=== PATIENT | female | born 1970 | race African-American/Black ===

== ENCOUNTER → 2016-06-07 | Outpatient (CLI) | payer OTHER ==
[2014-03-17 22:26] VITALS: BP 176/70
[2016-06-07 09:09] LABS: HEMATOCRIT 37.7 % (36.0-47.0); HEMOGLOBIN 11.7 g/dL (12.0-15.5); RED BLOOD COUNT 4.91 x10^6/uL (3.50-5.40); RED CELL DISTRIBUTION WIDTH 16.3 % (11.5-14.5); WHITE BLOOD COUNT 10.9 x10^3/uL (4.0-11.0)
[2016-06-07 09:41] LABS: ALBUMIN/GLOBULIN RATIO 0.6 (1.0-1.7); CALCIUM 9.2 mg/dL (8.5-10.1); CREATININE 1.1 mg/dL (0.6-1.0); GFR 64.4; TOTAL BILIRUBIN 0.4 mg/dL (0.2-1.0); TOTAL PROTEIN 8.2 g/dL (6.4-8.2)
[2016-06-07 09:45] LABS: CHOLESTEROL/HDL RATIO 5.4
== END | disposition home or self-care (01) ==
LOC: LAB 08:36
PROVIDERS: ATTEND Family Medicine
DX: I10 Essential (primary) hypertension (principal); E11.9 Type 2 diabetes mellitus without complications; F32.9 Major depressive disorder, single episode, unspecified; E78.5 Hyperlipidemia, unspecified
CPT/HCPCS: 36415; 80053; 80061; 83036; 84443; 85027

== ENCOUNTER → 2016-10-31 | Outpatient (CLI) | payer OTHER ==
[2014-03-17 22:26] VITALS: BP 176/70
[2016-10-31 09:43] LABS: CALCIUM 9.2 mg/dL (8.5-10.1); GFR 71.6; POTASSIUM 4.4 mmol/L (3.5-5.1)
[2016-10-31 09:47] LABS: CHOLESTEROL/HDL RATIO 3.5
== END | disposition home or self-care (01) ==
LOC: LAB 08:46
PROVIDERS: ATTEND Family Medicine
DX: I10 Essential (primary) hypertension (principal); E11.9 Type 2 diabetes mellitus without complications; F32.9 Major depressive disorder, single episode, unspecified; E78.5 Hyperlipidemia, unspecified
CPT/HCPCS: 36415; 80048; 80061; 83036; 84443

== ENCOUNTER 2016-12-10 08:38 | Emergency (ER) | payer OTHER ==
[~2016-12-10] VITALS: Ht 162.6 cm; Wt 172.4 kg
[2016-12-10 08:57] VITALS: BP 138/76
[2016-12-10] MEDS ORDERED: DIPHTH,PERTUSS(ACELL),TET TOX 0.5 ML DISP.SYRIN. VAX IM ONE (09:15)
[2016-12-10] MEDS ORDERED: SULF1TAB24 PO (09:17)
--- NOTE | 2016-12-10 09:17 | PHYS DOC ---
Past Medical History Past Medical History: Asthma, Diabetes-Type II, High Cholesterol, Hypertension , Other Additional Past Medical Histor: sarcoidosis Past Surgical History: Tonsillectomy Additional Past Surgical Histo: D&C Alcohol Use: None Drug Use: None Adult General Chief Complaint Chief Complaint: ABSCESS HPI HPI Patient is a 46 year old female who presents with R buttock abscess. It started last week and she was on vacation. It opened up and it drained a significant amount of puslike fluid. It has since somewhat improved but she still has mild pain in that area. She had a fever but this is since resolved. With the fever she had a body aches, nausea and vomiting, also this is resolved. She is unsure of her last tetanus immunization. She's had abscess in the past but not in the same area. Review of Systems Review of Systems Constitutional: Denies fever or chills [] Eyes: Denies change in visual acuity, redness, or eye pain [] HENT: Reports nasal congestion , denies sore throat [] Respiratory: Denies cough or shortness of breath [] Cardiovascular: Denies chest pain GI: Denies abdominal pain, nausea, vomiting, bloody stools or diarrhea [] : Denies dysuria or hematuria [] Musculoskeletal: Denies back pain or joint pain [] Integument: per history of present illness Neurologic: Denies headache, focal weakness or sensory changes [] Current Medications Current Medications Current Medications Medications (Trade) Dose Ordered Sig/Eamon Start Time Stop Time Status Last Admin Dose Admin Diphtheria/ Tetanus/Acell Pertussis (Boostrix) 0.5 ml ONCE ONCE 12/10/16 09:15 12/10/16 09:16 DC Allergies Allergies Allergies Coded Allergies Type Severity Reaction Last Updated Verified No Known Drug Allergies 05/01/13 No Physical Exam Physical Exam Constitutional: Well developed, well nourished, no acute distress, non-toxic appearance, morbid obesity HENT: Normocephalic, atraumatic, bilateral external ears normal, oropharynx moist, no oral exudates, nose normal. [] Eyes: PERRLA, EOMI, conjunctiva normal, no discharge. [] Neck: Normal range of motion, no tenderness, supple, no stridor. [] Cardiovascular:Heart rateregular with regular rhythm, no murmur [] Lungs & Thorax: Bilateral breath sounds clear to auscultation, no wheeze Skin: Warm, dry, R distal medial opening from prior abscess drainage without active drainage, no fluctuance, area of enduration laterall, no rectal involvement Back: No tenderness, no CVA tenderness. [] Extremities: No tenderness, no cyanosis, no clubbing, ROM intact, no edema. [] Neurologic: Alert and oriented X 3, normal motor function, normal sensory function, no focal deficits noted. [] Current Patient Data Vital Signs Vital Signs Date Time Temp Pulse Resp B/P (MAP) Pulse Ox O2 Delivery O2 Flow Rate FiO2 12/10/16 08:57 97.6 108 20 138/76 (96) 99 Room Air 97.6 EKG EKG [] Radiology/Procedures Radiology/Procedures Bedside ultrasound shows no area of fluid collection in the area of the induration and near the area prior drainage Heart rate down to 99[] Course & Med Decision Making Course & Med Decision Making Pertinent Labs and Imaging studies reviewed. (See chart for details) No clear abscess at this time. Offered CT scan versus antibiotics alone with follow-up. Patient agreed with antibiotics and understands strict return precautions. Her tetanus was updated. Referred to Dr. Crowe, prescription for Bactrim given. Dragon Disclaimer Dragon Disclaimer This electronic medical record was generated, in whole or in part, using a voice recognition dictation system. Departure Departure Impression: Primary Impression: Abscess Disposition: 01 HOME, SELF-CARE Condition: STABLE Referrals: MALU HERRING MD (PCP) Patient Instructions: Abscess Scripts Sulfamethoxazole/Trimethoprim (BACTRIM DS TABLET) 1 Each Tablet 1 TAB PO BID, #20 TAB Prov: ANNALISA GUNTER MD 12/10/16 ANNALISA GUNTER MD Dec 10, 2016 09:17
== END 2016-12-10 09:33 | disposition home or self-care (01) ==
LOC: ER 08:38
DX: L02.31 Cutaneous abscess of buttock (principal); E11.9 Type 2 diabetes mellitus without complications; J45.909 Unspecified asthma, uncomplicated; E78.00 Pure hypercholesterolemia, unspecified; I10 Essential (primary) hypertension
CPT/HCPCS: 90471; 90715; 99284-25

== ENCOUNTER 2016-12-16 11:27 | Inpatient (IN) | payer OTHER ==
[~2016-12-16] VITALS: Ht 162.6 cm; Wt 162.4 kg
[~2016-12-16 11:27] MED LIST: SULF1TAB24 PO
[2016-12-16 12:00] VITALS: BP 82/50
[2016-12-16 12:05] VITALS: BP 122/57
[2016-12-16] MEDS ORDERED: LISI1TAB7 PO (13:24)
[2016-12-16] MEDS ORDERED: IPRA3AMP NEB (13:24)
[2016-12-16] MEDS ORDERED: INSU100I17 SQ (13:24)
[2016-12-16] MEDS ORDERED: DAPA10TA PO (13:24)
[2016-12-16] MEDS ORDERED: METF500T4 PO (13:24)
[2016-12-16] MEDS ORDERED: ROSU20TA27 PO (13:24)
[2016-12-16] MEDS ORDERED: INSU100I30 SQ (13:24)
[2016-12-16] MEDS ORDERED: PROAIR HFA8.5 GM INH (13:24)
[2016-12-16] MEDS ORDERED: IV NORMAL SALINE 1000ML BAG 1,000 ML IV SCH (13:27)
[2016-12-16] MEDS ORDERED: MOME13HF IH (13:28)
[2016-12-16] MEDS ORDERED: VANCOMYCIN PER PHARMACY MC PRN (13:30)
[2016-12-16] MEDS ORDERED: ALBUTEROL SULFATE 2.5 MG/3 ML NEBU. NEB PRN (13:45)
[2016-12-16] MEDS ORDERED: ENOXAPARIN 40 MG/0.4 ML SYRINGE. SQ SCH (14:00)
[2016-12-16] MEDS ORDERED: PIPERACILLIN/TAZOBACTAM 3.375 GM in IV NORMAL SALINE 50ML 50 ML IV ONE (14:00)
[2016-12-16 15:00] VITALS: BP 134/82
[2016-12-16] MEDS ORDERED: VANCOMYCIN 2 GM in IV NORMAL SALINE 500ML BAG 500 ML IV ONE (15:00)
[2016-12-16] MEDS ORDERED: ACETAMINOPHEN 325 MG TABLET. PO PRN (15:00)
[2016-12-16] MEDS ORDERED: diphenhydrAMINE 50 MG/ML VIAL IVP ONE (15:00)
[2016-12-16 15:23] LABS: BASO % 0 % (0-3); EOS % 2 % (0-3); HEMATOCRIT 32.1 % (36.0-47.0); HEMOGLOBIN 10.5 g/dL (12.0-15.5); LYMPH # 2.8 x10^3/uL (1.0-4.8); LYMPH % 28 % (24-48); MEAN CORPUSCULAR HEMOGLOBIN 25 pg (25-35); MEAN CORPUSCULAR HGB CONC 33 g/dL (31-37); MEAN CORPUSCULAR VOLUME 75 fL (79-100); MONO % 10 % (0-9); NEUT % 60 % (31-73); PLATELET COUNT 527 x10^3/uL (140-400); RED BLOOD COUNT 4.28 x10^6/uL (3.50-5.40); RED CELL DISTRIBUTION WIDTH 16.3 % (11.5-14.5)
[2016-12-16 15:30] LABS: CALCIUM 9.4 mg/dL (8.5-10.1); CREATININE 2.2 mg/dL (0.6-1.0); GFR 28.8; POTASSIUM 4.8 mmol/L (3.5-5.1)
[2016-12-16] MEDS: IPRATRPIUM/ALBUTEROL 0.5/2.5MG 3 ML NEBU. NEB SCH ×2 (16:09→20:18)
--- NOTE | 2016-12-16 16:27 | PDOC2 ---
CONSULT Date of Consult Date of Consult DATE: 12/16/16 TIME: 16:25 Current Medications Current Medications Current Medications Sodium Chloride 1,000 ml @ 100 mls/hr Q10H IV Last administered on 12/16/16 13:48; Start 12/16/16 at 13:27; Stop 12/16/16 at 23:26 Enoxaparin Sodium (Lovenox 40mg Syringe) 40 mg Q24H SQ Last administered on 15:11; Start 12/16/16 at 14:00 Piperacillin Sod/ Tazobactam Sod 3.375 gm/Sodium Chloride 50 ml @ 100 mls/hr Q6HRS IV ; Start 12/16/16 at 20:00 Vancomycin HCl (Vanco Per Pharmacy) 1 each PRN DAILY PRN MC SEE COMMENTS Last administered on 12/16/16 16:19; Start 12/16/16 at 13:30 Insulin Aspart (NovoLOG) 30 units TIDWMEALS SQ ; Start 12/16/16 at 17:00 Albuterol/ Ipratropium (Duoneb) 3 ml RTQID NEB Last administered on 12/16/16 16:09; Start 12/16/16 at 16:00 Metformin HCl (Glucophage) 500 mg BIDWMEALS PO ; Start 12/16/16 at 17:00 Albuterol Sulfate (Ventolin Neb Soln) 2.5 mg PRN Q6HRS PRN NEB SHORTNESS OF BREATH; Start 12/16/16 at 13:45 Non-Formulary Medication 100 units DAILY SQ ; Start 12/17/16 at 09:00; Status UNV Lisinopril (Prinivil) 20 mg BID PO ; Start 12/16/16 at 21:00 Budesonide (Pulmicort) 0.5 mg RTBID NEB ; Start 12/16/16 at 20:00 Atorvastatin Calcium (Lipitor) 80 mg QHS PO ; Start 12/16/16 at 21:00 Insulin Aspart (NovoLOG) 0-12 UNITS QIDACHS SQ ; Start 12/16/16 at 16:30 Hydrochlorothiazide (Hydrodiuril) 25 mg BID PO ; Start 12/16/16 at 21:00 Vancomycin HCl 2 gm/Sodium Chloride 500 ml @ 250 mls/hr 1X ONCE IV Last administered on 12/16/16 15:12; Start 12/16/16 at 15:00; Stop 12/16/16 at 16:59 Piperacillin Sod/ Tazobactam Sod 3.375 gm/Sodium Chloride 50 ml @ 100 mls/hr 1X ONCE IV Last administered on 12/16/16 14:10; Start 12/16/16 at 14:00; Stop 12/16/16 at 14:59; Status DC Diphenhydramine HCl (Benadryl) 50 mg 1X ONCE IVP Last administered on 15:08; Start 12/16/16 at 15:00; Stop 12/16/16 at 15:01; Status DC Acetaminophen/ Hydrocodone Bitart (Lortab 7.5/325) 1 tab PRN Q6HRS PRN PO PAIN ; Start 12/16/16 at 15:00 Acetaminophen (Tylenol) 650 mg PRN Q6HRS PRN PO MILD PAIN; Start 12/16/16 at 15 :00 Vancomycin HCl 2 gm/Sodium Chloride 500 ml @ 250 mls/hr Q24H IV ; Start at 15:00 Vancomycin HCl 1 each 1X ONCE MC ; Start 12/16/16 at 16:30; Stop 12/16/16 at 16 :31; Status Cancel Vancomycin HCl 1 each 1X ONCE MC ; Start 12/18/16 at 14:30; Stop 12/18/16 at 14 :31 Active Scripts Active Bactrim Ds Tablet (Sulfamethoxazole/Trimethoprim) 1 Each Tablet 1 Tab PO BID Reported Dulera 200 Mcg/5 Mcg Inhaler (Mometasone/Formoterol) 13 Gm Hfa.aer.ad 2 Puff IH BID Proair Hfa Inhaler (Albuterol Sulfate) 8.5 Gm Hfa.aer.ad 1 Puff INH PRN Q6HRS PRN Duoneb 0.5-3(2.5) Mg/3 Ml (Albuterol/Ipratropium) 3 Ml Ampul.neb 3 Ml NEB QID Metformin Hcl 500 Mg Tablet 500 Mg PO BID Lisinopril-Hctz 20-25 Mg Tab (Lisinopril/Hydrochlorothiazide) 1 Each Tablet 1 Tab PO BID Tresiba Flextouch U-100 (Insulin Degludec) 100 Unit/1 Ml Insuln.pen 100 Units SQ DAILY Rosuvastatin Calcium 20 Mg Tablet 20 Mg PO HS Novolog Flexpen (Insulin Aspart) 100 Unit/1 Ml Insuln.pen 30 Units SQ TIDWMEALS Farxiga (Dapagliflozin Propanediol) 10 Mg Tablet 10 Mg PO DAILY Allergies Allergies: Coded Allergies: No Known Drug Allergies (Unverified , 05/01/13) Vitals VITALS Vital Signs Date Time Temp Pulse Resp B/P (MAP) Pulse Ox O2 Delivery O2 Flow Rate FiO2 12/16/16 16:15 98 Room Air 12/16/16 12:05 103 122/57 (78) 12/16/16 12:00 97.4 16 97.4 Labs Labs Laboratory Tests Test 12/16/16 14:40 White Blood Count 10.0 x10^3/uL (4.0-11.0) Red Blood Count 4.28 x10^6/uL (3.50-5.40) Hemoglobin 10.5 g/dL (12.0-15.5) Hematocrit 32.1 % (36.0-47.0) Mean Corpuscular Volume 75 fL (79-100) Mean Corpuscular Hemoglobin 25 pg (25-35) Mean Corpuscular Hemoglobin Concent 33 g/dL (31-37) Red Cell Distribution Width 16.3 % (11.5-14.5) Platelet Count 527 x10^3/uL (140-400) Neutrophils (%) (Auto) 60 % (31-73) Lymphocytes (%) (Auto) 28 % (24-48) Monocytes (%) (Auto) 10 % (0-9) Eosinophils (%) (Auto) 2 % (0-3) Basophils (%) (Auto) 0 % (0-3) Neutrophils # (Auto) 6.0 x10^3uL (1.8-7.7) Lymphocytes # (Auto) 2.8 x10^3/uL (1.0-4.8) Monocytes # (Auto) 1.0 x10^3/uL (0.0-1.1) Eosinophils # (Auto) 0.2 x10^3/uL (0.0-0.7) Basophils # (Auto) 0.0 x10^3/uL (0.0-0.2) Sodium Level 134 mmol/L (136-145) Potassium Level 4.8 mmol/L (3.5-5.1) Chloride Level 100 mmol/L (98-107) Carbon Dioxide Level 21 mmol/L (21-32) Anion Gap 13 (6-14) Blood Urea Nitrogen 36 mg/dL (7-20) Creatinine 2.2 mg/dL (0.6-1.0) Estimated GFR (Cockcroft-Gault) 28.8 Glucose Level 227 mg/dL (70-99) Calcium Level 9.4 mg/dL (8.5-10.1) Laboratory Tests Test 12/16/16 14:40 White Blood Count 10.0 x10^3/uL (4.0-11.0) Red Blood Count 4.28 x10^6/uL (3.50-5.40) Hemoglobin 10.5 g/dL (12.0-15.5) Hematocrit 32.1 % (36.0-47.0) Mean Corpuscular Volume 75 fL (79-100) Mean Corpuscular Hemoglobin 25 pg (25-35) Mean Corpuscular Hemoglobin Concent 33 g/dL (31-37) Red Cell Distribution Width 16.3 % (11.5-14.5) Platelet Count 527 x10^3/uL (140-400) Neutrophils (%) (Auto) 60 % (31-73) Lymphocytes (%) (Auto) 28 % (24-48) Monocytes (%) (Auto) 10 % (0-9) Eosinophils (%) (Auto) 2 % (0-3) Basophils (%) (Auto) 0 % (0-3) Neutrophils # (Auto) 6.0 x10^3uL (1.8-7.7) Lymphocytes # (Auto) 2.8 x10^3/uL (1.0-4.8) Monocytes # (Auto) 1.0 x10^3/uL (0.0-1.1) Eosinophils # (Auto) 0.2 x10^3/uL (0.0-0.7) Basophils # (Auto) 0.0 x10^3/uL (0.0-0.2) Sodium Level 134 mmol/L (136-145) Potassium Level 4.8 mmol/L (3.5-5.1) Chloride Level 100 mmol/L (98-107) Carbon Dioxide Level 21 mmol/L (21-32) Anion Gap 13 (6-14) Blood Urea Nitrogen 36 mg/dL (7-20) Creatinine 2.2 mg/dL (0.6-1.0) Estimated GFR (Cockcroft-Gault) 28.8 Glucose Level 227 mg/dL (70-99) Calcium Level 9.4 mg/dL (8.5-10.1) Assessment/Plan Assessment/Plan FNTBD will check soft tissue US in the AM to see if need for further drainage d/w Kendra HOLLOWAYO after clear liquids in the AM Thanks for consult CONSUELO ROUSE MD Dec 16, 2016 16:27
[2016-12-16] MEDS: HYDROcodone/APAP 7.5/325MG 1 TAB TABLET PO PRN ×2 (16:33→22:39)
[2016-12-16] MEDS ORDERED: INFLUENZA VAX SCREEN BY RX. MC PRN (17:00)
[2016-12-16] MEDS ORDERED: PNEUMOCOCCAL VAX SCREEN BY RX. MC PRN (17:00)
--- NOTE | 2016-12-16 17:19 | HP ---
ADMIT DATE: 12/16/2016 CHIEF COMPLAINT: Draining abscess. HISTORY OF PRESENT ILLNESS AND HOSPITAL COURSE: This patient is a 46-year-old female who approximately 6 days prior to visit in the office went to the Emergency Room with perirectal pain and drainage. She was found to have a perirectal abscess which had spontaneously drained and was given Bactrim DS 1 p.o. b.i.d. and cleaning instructions. She came in for followup stating that she was somewhat better, but still felt ill having episodes of nausea and vomiting, feeling fatigued and dizzy. During office evaluation, she was mildly hypotensive compared to her ongoing hypertension with a blood pressure of 109/68. She had a continuing draining perirectal abscess with copious purulent drainage and areas of cellulitis superior to the draining abscess with ongoing firmness. Due to her multiple risk factors of morbid obesity and type 2 diabetes and suspicions of sepsis, she was admitted with failed p.o. antibiotic therapy suspected. PAST MEDICAL HISTORY: Significant for morbid obesity with BMI of 61.44; type 2 diabetes, out of control with last A1c 6 months ago of 11.5; hypertension; high cholesterol; moderate and persistent asthma; obstructive sleep apnea; generalized anxiety and depression; sarcoidosis. MEDICATIONS ON ADMISSION: Lisinopril/HCTZ 20/25 one p.o. b.i.d., metformin 500 one p.o. b.i.d., Lasix 40 mg 1 daily, potassium 20 mEq 1 daily, Neurontin 300 mg at bedtime, Prozac 20 mg q. day, Dulera inhaler 5/200 two puffs b.i.d., DuoNeb nebulizer treatments q. 6 hours, ProAir metered dose inhaler 2 puffs p.r.n., Crestor 20 mg daily, Tresiba 100 units subcutaneously daily, NovoLog FlexPen 30 units subcutaneous with meals, Farxiga 10 mg daily. FAMILY HISTORY: She has a mother who is alive with significant vascular disease status post coronary artery bypass graft, type 2 diabetes, coronary artery disease and hypertension. She has a father who is with brain aneurysm and prostate cancer. 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 She has not smoked. She does not use alcohol. She lives with a roommate. DRUG ALLERGIES: The patient denies. PREVIOUS SURGERIES: D and C, tonsil and adenoidectomy and skin cyst removal. REVIEW OF SYSTEMS: The patient has had a draining, painful abscess for 6 days. She has had ongoing nausea, vomiting and dizziness over the last week. She has not taken her temperature but has felt chills. Her chronic medical issues had been stable to this point except for chronically abnormal and out of control blood sugars. PHYSICAL EXAMINATION: GENERAL: This is a morbidly obese, female in mild distress. She is alert and oriented x 3. HEENT: Benign. NECK: Supple. CARDIAC: Regular rate and rhythm. LUNGS: Clear. ABDOMEN: Soft, nontender. EXTREMITIES: 2+ nonpitting edema and 2+ pulses. SKIN: Revealed a large perirectal abscess with induration superiorly 6 inches x 3 inches in diameter with copious purulent drainage. Culture was done in the office. ASSESSMENT: 1. Suspected sepsis. 2. Perirectal abscess. 3. Acute on chronic renal failure. 4. Type 2 diabetes, out of control. 5. Hypertension. 6. High cholesterol. 7. Moderate persistent asthma. 8. Morbid obesity. 9. Obstructive sleep apnea. 10. Anxiety, depression. PLAN: To proceed with IV antibiotics in the form of vanco and and Zosyn. Consult Infectious Disease as well as Surgery for further evaluation and treatment and debridement if necessary. We will proceed with chronic home medications, discontinuing Farxiga for risk of lactic acidosis and continue to monitor blood sugars throughout hospital stay. MALU HERRING MD DR: NORIS/alysa JOB#: [id number] / [id number]
[2016-12-16] MEDS: metFORMIN 500 MG TABLET PO SCH (17:37)
[2016-12-16] MEDS: INSULIN ASPART 300 UNITS/3 ML INSULN.PEN SQ SCH ×3 (17:42→22:04)
[2016-12-16] MEDS ORDERED: PNEUMOC CONJ VACC 23-VALENT 0.5 ML VIAL. VAX IM ONE (18:00)
[2016-12-16] MEDS ORDERED: FLU VACC QS2017-18 (36MOS+)/PF 0.5 ML SYRINGE. VAX IM ONE (18:00)
[2016-12-16 19:57] VITALS: BP 94/48
[2016-12-16] MEDS ORDERED: PIPERACILLIN/TAZOBACTAM 3.375 GM in IV NORMAL SALINE 50ML 50 ML IV SCH (20:00)
[2016-12-16] MEDS ORDERED: diphenhydrAMINE HCL 25 MG CAPSULE PO PRN (20:15)
[2016-12-16] MEDS: BUDESONIDE 0.5 MG/2 ML NEBU. NEB SCH (20:18)
[2016-12-16] MEDS: ATORVASTATIN CALCIUM 40 MG TABLET. PO SCH (20:30)
[2016-12-16] MEDS: hydroCHLOROthiazide 25 MG TABLET PO SCH ×2 (21:00→22:34)
[2016-12-16] MEDS: MEROPENEM 500 MG in IV NORMAL SALINE 50ML 50 ML IV SCH (21:59)
[2016-12-16] MEDS: LISINOPRIL 20 MG TABLET PO SCH (22:38)
[2016-12-16 23:27] VITALS: BP 112/52
[2016-12-17] VITALS (11 sets, daily range): BP systolic 91–131; BP diastolic 47–71
[2016-12-17] MEDS: MEROPENEM 500 MG in IV NORMAL SALINE 50ML 50 ML IV SCH ×3 (05:37→22:02)
[2016-12-17] MEDS: BUDESONIDE 0.5 MG/2 ML NEBU. NEB SCH ×2 (07:18→20:26)
[2016-12-17] MEDS: IPRATRPIUM/ALBUTEROL 0.5/2.5MG 3 ML NEBU. NEB SCH ×4 (07:18→20:26)
[2016-12-17 07:55] LABS: BASO % 0 % (0-3); EOS % 3 % (0-3); HEMATOCRIT 30.9 % (36.0-47.0); LYMPH # 2.3 x10^3/uL (1.0-4.8); LYMPH % 25 % (24-48); MEAN CORPUSCULAR HEMOGLOBIN 25 pg (25-35); MEAN CORPUSCULAR HGB CONC 32 g/dL (31-37); MEAN CORPUSCULAR VOLUME 76 fL (79-100); MONO % 9 % (0-9); NEUT % 63 % (31-73); PLATELET COUNT 475 x10^3/uL (140-400); RED BLOOD COUNT 4.09 x10^6/uL (3.50-5.40); RED CELL DISTRIBUTION WIDTH 16.4 % (11.5-14.5); WHITE BLOOD COUNT 9.3 x10^3/uL (4.0-11.0)
[2016-12-17] MEDS: INSULIN ASPART 300 UNITS/3 ML INSULN.PEN SQ SCH ×7 (08:00→21:18)
--- NOTE | 2016-12-17 08:13 | RAD ---
Right buttock ultrasound, 12/17/2016: History: Tenderness, draining wound The area of clinical concern in the medial aspect of the right buttock was carefully scanned. There is an irregular mass in the superficial soft tissues. It measures 4.9 x 3.7 x 1.1 cm. Its margins are irregular and spiculated. There is a hypoechoic rim with heterogeneous, predominantly hyperechoic material internally. No internal color flow is seen. This probably represents a complicated fluid collection. IMPRESSION: Irregular, heterogeneous mass in the right buttock probably representing complex fluid such as an abscess or hematoma.
[2016-12-17 08:18] LABS: ALBUMIN 2.6 g/dL (3.4-5.0); ALBUMIN/GLOBULIN RATIO 0.4 (1.0-1.7); CALCIUM 9.4 mg/dL (8.5-10.1); GFR 32.2; POTASSIUM 4.9 mmol/L (3.5-5.1); TOTAL BILIRUBIN 0.3 mg/dL (0.2-1.0); TOTAL PROTEIN 8.8 g/dL (6.4-8.2)
[2016-12-17] MEDS: metFORMIN 500 MG TABLET PO SCH ×2 (08:37→17:00)
[2016-12-17] MEDS: HYDROcodone/APAP 7.5/325MG 1 TAB TABLET PO PRN ×2 (08:38→18:58)
--- NOTE | 2016-12-17 08:57 | PDOC ---
Infectious Disease Note Vital Sign Vital Signs Vital Signs Date Time Temp Pulse Resp B/P (MAP) Pulse Ox O2 Delivery O2 Flow Rate FiO2 12/17/16 08:38 Room Air 12/17/16 07:19 98 12/17/16 07:15 97.7 79 18 99/48 (65) 97.7 Labs Lab Laboratory Tests Test 12/16/16 14:40 12/16/16 17:01 12/16/16 20:45 12/17/16 06:30 White Blood Count 10.0 x10^3/uL (4.0-11.0) 9.3 x10^3/uL (4.0-11.0) Red Blood Count 4.28 x10^6/uL (3.50-5.40) 4.09 x10^6/uL (3.50-5.40) Hemoglobin 10.5 g/dL (12.0-15.5) 10.0 g/dL (12.0-15.5) Hematocrit 32.1 % (36.0-47.0) 30.9 % (36.0-47.0) Mean Corpuscular Volume 75 fL (79-100) 76 fL (79-100) Mean Corpuscular Hemoglobin 25 pg (25-35) 25 pg (25-35) Mean Corpuscular Hemoglobin Concent 33 g/dL (31-37) 32 g/dL (31-37) Red Cell Distribution Width 16.3 % (11.5-14.5) 16.4 % (11.5-14.5) Platelet Count 527 x10^3/uL (140-400) 475 x10^3/uL (140-400) Neutrophils (%) (Auto) 60 % (31-73) 63 % (31-73) Lymphocytes (%) (Auto) 28 % (24-48) 25 % (24-48) Monocytes (%) (Auto) 10 % (0-9) 9 % (0-9) Eosinophils (%) (Auto) 2 % (0-3) 3 % (0-3) Basophils (%) (Auto) 0 % (0-3) 0 % (0-3) Neutrophils # (Auto) 6.0 x10^3uL (1.8-7.7) 5.9 x10^3uL (1.8-7.7) Lymphocytes # (Auto) 2.8 x10^3/uL (1.0-4.8) 2.3 x10^3/uL (1.0-4.8) Monocytes # (Auto) 1.0 x10^3/uL (0.0-1.1) 0.8 x10^3/uL (0.0-1.1) Eosinophils # (Auto) 0.2 x10^3/uL (0.0-0.7) 0.3 x10^3/uL (0.0-0.7) Basophils # (Auto) 0.0 x10^3/uL (0.0-0.2) 0.0 x10^3/uL (0.0-0.2) Sodium Level 134 mmol/L (136-145) 132 mmol/L (136-145) Potassium Level 4.8 mmol/L (3.5-5.1) 4.9 mmol/L (3.5-5.1) Chloride Level 100 mmol/L (98-107) 100 mmol/L (98-107) Carbon Dioxide Level 21 mmol/L (21-32) 21 mmol/L (21-32) Anion Gap 13 (6-14) 11 (6-14) Blood Urea Nitrogen 36 mg/dL (7-20) 40 mg/dL (7-20) Creatinine 2.2 mg/dL (0.6-1.0) 2.0 mg/dL (0.6-1.0) Estimated GFR (Cockcroft-Gault) 28.8 32.2 Glucose Level 227 mg/dL (70-99) 185 mg/dL (70-99) Calcium Level 9.4 mg/dL (8.5-10.1) 9.4 mg/dL (8.5-10.1) Glucose (Fingerstick) 237 mg/dL (70-99) 130 mg/dL (70-99) BUN/Creatinine Ratio 20 (6-20) Total Bilirubin 0.3 mg/dL (0.2-1.0) Aspartate Amino Transf (AST/SGOT) 30 U/L (15-37) Alanine Aminotransferase (ALT/SGPT) 44 U/L (14-59) Alkaline Phosphatase 81 U/L (46-116) Total Protein 8.8 g/dL (6.4-8.2) Albumin 2.6 g/dL (3.4-5.0) Albumin/Globulin Ratio 0.4 (1.0-1.7) Test 12/17/16 07:09 Glucose (Fingerstick) 184 mg/dL (70-99) Objective Assessment Right perirectal abscess ? zosyn reaction - itch but has tolerated augmentin GRICEL - ? Bactrim +/- Dm DM Plan Plan of Care Cont Meropenem. D/c Vanc with GRICEL and begin zyvox F/u cultures from Dr. Tran office Await Surgical eval follow up F/u labs Thank you # [id number] BELEN CHRISTIAN MD Dec 17, 2016 08:57
[2016-12-17] MEDS: INSULIN DEGLUDEC 100 UNIT SQ SCH (09:00)
[2016-12-17] MEDS: LINEZOLID 600 MG TABLET PO SCH ×2 (10:00→21:12)
[2016-12-17] MEDS ORDERED: IV RINGERS,LACTATED 1000ML 1,000 ML IV SCH (10:46)
[2016-12-17] MEDS ORDERED: ONDANSETRON PF 4 MG/2 ML VIAL. IV PRN (11:00)
[2016-12-17] MEDS ORDERED: PROCHLORPERAZINE 10 MG/2 ML VIAL. IV PRN (11:00)
[2016-12-17] MEDS ORDERED: MORPHINE SULFATE 4 MG/ML DISP.SYRIN. IV PRN (11:00)
[2016-12-17] MEDS ORDERED: LIDOCAINE 1% PF 2 ML VIAL. ID PRN (11:00)
[2016-12-17] MEDS: hydroCHLOROthiazide 25 MG TABLET PO SCH ×2 (11:22→21:11)
[2016-12-17] MEDS: LISINOPRIL 20 MG TABLET PO SCH ×2 (11:22→21:12)
--- NOTE | 2016-12-17 11:35 | CONS ---
DATE OF CONSULTATION: REFERRING PHYSICIAN: Dr. Ramses Tran. 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 It was drained and packed. She was seen in her primary care office and found to be somewhat hypotensive. Because of her diabetes risk and potential sepsis, she was admitted for further evaluation and treatment. We were asked to see her to assess the right perirectal abscess. PAST SURGICAL HISTORY: T and A, D and C. PAST MEDICAL HISTORY: Type 2 diabetes, morbid obesity (BMI of 61), hypertension, asthma, obstructive sleep apnea, sarcoidosis, anxiety and depression. ALLERGIES: SHE IS ALLERGIC TO PIPERACILLIN AND TAZOBACTAM. ROUTINE MEDICATIONS: Listed on reconciliation sheet. SOCIAL HISTORY: She is a nonsmoker who does not use alcohol. FAMILY HISTORY: Coronary artery disease, hypertension. REVIEW OF SYSTEMS: GENERAL: Subjective fever and occasional chills, per the patient. HEENT: No recent sore throat or earache. CARDIAC: No palpitations or chest pain. RESPIRATORY: Occasional wheezing secondary to her asthma. No productive cough. GASTROINTESTINAL: Has had nausea and vomiting. NEUROLOGIC: Complains of some dizziness recently without visual changes. PHYSICAL EXAMINATION: GENERAL: Reveals a morbidly obese female who is awake, alert and in no acute distress. VITAL SIGNS: Her temperature is 97.6, heart rate 102, blood pressure 134/82. HEENT: She is normocephalic. EOMs intact. NECK: Supple. LUNGS: Have an occasional wheeze. CARDIAC: Has an increased rate. ABDOMEN: Morbidly obese. PELVIC: Deferred. RECTAL: Visual inspection shows some what appears to be quarter-inch plain Nu Gauze extruding from a small opening on the right buttock near the anal orifice. EXTREMITIES: Show edema. NEUROLOGIC: She is grossly intact. LABORATORY DATA: Admission lab shows a white count of 10,000. Chemistries show elevated blood sugar at 227 and creatinine of 2.2. IMPRESSION: 1. Perirectal abscess, previously drained, possible residual. 2. Morbid obesity. 3. Diabetes. 4. Hypertension. 5. Anxiety/depression. PLAN: We will obtain an ultrasound of the area to further assess possible need for surgical drainage. Await those results. Thank you for asking us to see the patient and participate in her care. We will follow her with you during her hospitalization. CONSUELO ROUSE MD DR: MARITZA/alysa JOB#: [id number] / [id number]
--- NOTE | 2016-12-17 12:03 | CONS ---
DATE OF CONSULTATION: 12/17/2016 LOCATION: Room #416. REQUESTING PHYSICIAN: Dr. Tran. REASON FOR CONSULTATION: Perirectal abscess. HISTORY OF PRESENT ILLNESS: The patient is a pleasant 46-year-old -[place] female who was traveling in [place] a little while ago and she said she felt ill with flu-like illness and traveled back to [place] by car. Shortly after returning, she developed some acute pain in her right buttock area and was seen in the Emergency Room at [facility] on 12/10/2016. She had a bedside ultrasound that did not show any induration or fluid collection and she was discharged on Bactrim. She then followed up on [address] Tran for which she was seen and started to spontaneously drain at home. She had increasing pain in the area for several days. She had some nausea, vomiting, dizzy and has felt dizzy and felt like she has some chills. No dysuria, no frequency, no falls. She states that her blood sugars were over 200 and subsequently she was admitted to [facility] on the . She had a white count of 10, platelets were elevated at 527, but she also was found to have a creatinine of 2.2 with a baseline of 1 on the 31 of October. Currently, she is sitting on the side of bed, states that her rectal area is continuing to drain, but she is feeling better with some drainage. PAST MEDICAL HISTORY: Positive for morbid obesity, type 2 diabetes, hypertension, hypercholesterolemia, asthma, obstructive sleep apnea, anxiety, depression and sarcoidosis. She has had previous influenza REVIEW OF SYSTEMS: Otherwise negative except for mentioned above. ALLERGIES: Questionable now to ZOSYN. She developed itch, but no gross rash or any other symptoms last evening. She has tolerated amoxicillin and Augmentin in the past. 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 No tobacco, no alcohol and lives with roommate. FAMILY HISTORY: Positive for vascular disease, coronary artery disease, diabetes, hypertension, brain aneurysm and prostate cancer. CURRENT MEDICATIONS: Include vancomycin, meropenem, Zosyn has been discontinued. She is on Lipitor, Pulmicort, Benadryl, Lovenox, hydrochlorothiazide, insulin, Prinivil, metformin. PHYSICAL EXAMINATION: VITAL SIGNS: She has been afebrile, temperature 97.7, pulse 79, respiratory rate 18, blood pressure 99/48, satting 98% on room air. CONSTITUTIONAL: She is cooperative. She is in no acute distress. She is sitting on the side of the bed. She is morbidly obese. HEENT: Pupils are equal and reactive. She has normal conjunctivae. Oral cavity, pharynx was clear. NECK: Full. LUNGS: Clear to auscultation. HEART: S1, S2. ABDOMEN: Morbidly obese, soft, nontender, nondistended. No CVA tenderness. EXTREMITIES: Without clubbing, cyanosis or gross edema. She has a right buttock abscess with a small opening approximately a cm size that is draining some purulent material. There is some mild surrounding erythema. SKIN: Otherwise, warm to touch without signs of rash. NEUROLOGIC: She is nonfocal, moves all extremities. PSYCHIATRIC: Affect is appropriate. LABORATORY VALUES: White count 9.3, hemoglobin 10, platelets 475 with a normal differential. Creatinine is 2, glucose 185. Normal liver function study tests. Albumin was 2.6. Ultrasound report, irregular heterogeneous mass, right buttock, probably representing complex fluid such as abscess or hematoma. IMPRESSION: 1. Right perirectal abscess. 2. Questionable Zosyn reaction caused itch, but is tolerating Augmentin. 3. Acute kidney injury secondary to Bactrim, plus or minus for diabetes. 4. Diabetes. RECOMMENDATIONS: For now, we will continue meropenem. We will discontinue the vancomycin with acute kidney injury and begin Zyvox. We will follow up cultures that were obtained in Dr. Tran's office. Await surgical eval and follow up. We will follow up on labs. Dr. Tran, thank you for allowing me to participate in this patient's care. If you have any questions, please do not hesitate to contact me. BELEN CHRISTIAN MD DR: RAVI/alysa JOB#: [id number] / [id number]
[2016-12-17] MEDS ORDERED: fentaNYL PF VIAL 100 MCG/2 ML VIAL ONE (12:20)
[2016-12-17] MEDS ORDERED: PROPOFOL 20 ML IV ONE ×4 (12:21→14:18)
[2016-12-17] MEDS ORDERED: MIDAZOLAM HCL/PF 2 MG/2 ML VIAL. ONE (12:21)
[2016-12-17] MEDS ORDERED: DEXAMETHASONE SOD PHOS 20 MG/5 ML VIAL. ONE (12:22)
[2016-12-17] MEDS ORDERED: ONDANSETRON PF 4 MG/2 ML VIAL. ONE (12:23)
[2016-12-17] MEDS ORDERED: SUCCINYLCHOLINE 200 MG/10 ML VIAL. ONE (12:23)
[2016-12-17] MEDS ORDERED: KETAMINE HCL 500 MG/10 ML VIAL. ONE (12:39)
[2016-12-17] MEDS ORDERED: FAMOTIDINE 20 MG/2 ML VIAL ONE (12:39)
[2016-12-17] MEDS ORDERED: PHENYLEPHRINE in 0.9% NACL PF 1 MG/10 ML DISP.SYRIN. IV ONE (13:59)
[2016-12-17] MEDS ORDERED: DESFLURANE 61 TO 120 MINUTES IH ONE (14:21)
--- NOTE | 2016-12-17 14:44 | PDOC ---
BRIEF OPERATIVE NOTE Date: Dec 17, 2016 Pre-Op Diagnosis right perirectal abscess Post-Op Diagnosis same Procedure Performed excisional debridement of skin, subcutaneous fat and muscle, right perirectal abscess Surgeon [employer] Member Samanta Mills Anesthesia Type: General Blood Loss 200cc IV Fluid 300cc Specimens Obtained cultures Findings necrotic skin, fat and muscle in abscess cavity Complications none OPerative Note Wk # [id number] CONSUELO ROUSE MD Dec 17, 2016 14:44
[2016-12-17] MEDS ORDERED: VANCOMYCIN 2 GM in IV NORMAL SALINE 500ML BAG 500 ML IV SCH (15:00)
[2016-12-17] MEDS ORDERED: INSULIN ASPART 100 UNIT/ML 10ML VIAL. SQ ONE ×2 (15:05→15:15)
[2016-12-17] MEDS: HYDROmorphone 2 MG/ML VIAL IV PRN ×4 (15:05→15:44)
--- NOTE | 2016-12-17 15:25 | OP ---
DATE OF SURGERY: 12/17/2016 PREOPERATIVE DIAGNOSIS: Right perirectal abscess. POSTOPERATIVE DIAGNOSIS: Right perirectal abscess. PROCEDURE: Excisional debridement of skin, subcutaneous fat and muscle, right perirectal abscess. SURGEON: Consuelo Rouse MD. ANESTHESIA: General endotracheal. BLOOD LOSS: 200 mL. INTRAVENOUS FLUID: 300 mL. INDICATIONS: The patient is a morbidly obese 46-year-old female with the right perirectal abscess brought for debridement. OPERATIVE FINDINGS: Necrotic skin, subcutaneous fat and muscle were found in the wound and these were all removed with sharp debridement and a wound VAC was placed. OPERATIVE REPORT: The patient brought to the operating suite, given a general endotracheal anesthetic and the patient placed in the dorsal lithotomy position and the right gluteal area prepped and draped in usual sterile fashion. Probing of the wound revealed extension inferiorly, posteriorly and this was unroofed. With gentle digital exploration, loculations were broken up and necrotic tissue was excised with the LigaSure. Once we were down to healthy tissue, the wound was copiously irrigated with the pulses superintendent refuse disposal. Hemostasis obtained with 3-0 Vicryl stick ties and cautery. At completion of the debridement, the wound measured 11 cm in length, 3 cm in width, and 6 cm in depth. When hemostasis was present and correct sponge count was obtained, wound VAC was applied by the RNs from the wound care center. The patient was taken out of the lithotomy position, awakened from her anesthetic and taken to the recovery room in satisfactory condition. CONSUELO ROUSE MD DR: MARITZA/alysa JOB#: [id number] / [id number]
--- NOTE | 2016-12-17 18:20 | PDOC ---
PROGRESS NOTES Subjective Subjective Patient feeling better after IV fluids and antibiotics. Infectious disease and surgery consultations appreciated. Antibiotics changed due to suspected allergy to piperacillin. Abscess sonography reveals loculated fluid and surgery planned for today. Objective Objective Vital Signs Date Time Temp Pulse Resp B/P (MAP) Pulse Ox O2 Delivery O2 Flow Rate FiO2 12/17/16 17:15 97.3 81 18 124/71 (88) 96 Nasal Cannula 2.0 97.3 Intake and Output 12/18/16 07:00 Intake Total 400 ml Output Total 0 ml Balance 400 ml Intake Oral 50 ml IV Total 350 ml Output Urine Total 0 ml # Voids 2 Physical Exam Abdomen: Normal bowel sounds Heart: Regular rate Extremities: No edema General: Alert Lungs: Clear to auscultation COMMENT Perirectal abscess dressed and continues to drain. Assessment Assessment Sepsis resolving Perirectal abscess Acute renal failure resolving Type 2 diabetes, out of control. Hypertension. High cholesterol. Moderate persistent asthma. Morbid obesity. Obstructive sleep apnea. Anxiety, depression. Plan Plan of Care Continue antibiotic per infectious disease. Continue surgery plan. Monitor control chronic medical issues. Comment Review of Relevant I have reviewed the following items nir (where applicable) has been applied. Labs Laboratory Tests Test 12/16/16 14:40 12/16/16 17:01 12/16/16 20:45 12/17/16 06:30 White Blood Count 10.0 x10^3/uL (4.0-11.0) 9.3 x10^3/uL (4.0-11.0) Red Blood Count 4.28 x10^6/uL (3.50-5.40) 4.09 x10^6/uL (3.50-5.40) Hemoglobin 10.5 g/dL (12.0-15.5) 10.0 g/dL (12.0-15.5) Hematocrit 32.1 % (36.0-47.0) 30.9 % (36.0-47.0) Mean Corpuscular Volume 75 fL (79-100) 76 fL (79-100) Mean Corpuscular Hemoglobin 25 pg (25-35) 25 pg (25-35) Mean Corpuscular Hemoglobin Concent 33 g/dL (31-37) 32 g/dL (31-37) Red Cell Distribution Width 16.3 % (11.5-14.5) 16.4 % (11.5-14.5) Platelet Count 527 x10^3/uL (140-400) 475 x10^3/uL (140-400) Neutrophils (%) (Auto) 60 % (31-73) 63 % (31-73) Lymphocytes (%) (Auto) 28 % (24-48) 25 % (24-48) Monocytes (%) (Auto) 10 % (0-9) 9 % (0-9) Eosinophils (%) (Auto) 2 % (0-3) 3 % (0-3) Basophils (%) (Auto) 0 % (0-3) 0 % (0-3) Neutrophils # (Auto) 6.0 x10^3uL (1.8-7.7) 5.9 x10^3uL (1.8-7.7) Lymphocytes # (Auto) 2.8 x10^3/uL (1.0-4.8) 2.3 x10^3/uL (1.0-4.8) Monocytes # (Auto) 1.0 x10^3/uL (0.0-1.1) 0.8 x10^3/uL (0.0-1.1) Eosinophils # (Auto) 0.2 x10^3/uL (0.0-0.7) 0.3 x10^3/uL (0.0-0.7) Basophils # (Auto) 0.0 x10^3/uL (0.0-0.2) 0.0 x10^3/uL (0.0-0.2) Sodium Level 134 mmol/L (136-145) 132 mmol/L (136-145) Potassium Level 4.8 mmol/L (3.5-5.1) 4.9 mmol/L (3.5-5.1) Chloride Level 100 mmol/L (98-107) 100 mmol/L (98-107) Carbon Dioxide Level 21 mmol/L (21-32) 21 mmol/L (21-32) Anion Gap 13 (6-14) 11 (6-14) Blood Urea Nitrogen 36 mg/dL (7-20) 40 mg/dL (7-20) Creatinine 2.2 mg/dL (0.6-1.0) 2.0 mg/dL (0.6-1.0) Estimated GFR (Cockcroft-Gault) 28.8 32.2 Glucose Level 227 mg/dL (70-99) 185 mg/dL (70-99) Calcium Level 9.4 mg/dL (8.5-10.1) 9.4 mg/dL (8.5-10.1) Glucose (Fingerstick) 237 mg/dL (70-99) 130 mg/dL (70-99) BUN/Creatinine Ratio 20 (6-20) Total Bilirubin 0.3 mg/dL (0.2-1.0) Aspartate Amino Transf (AST/SGOT) 30 U/L (15-37) Alanine Aminotransferase (ALT/SGPT) 44 U/L (14-59) Alkaline Phosphatase 81 U/L (46-116) Total Protein 8.8 g/dL (6.4-8.2) Albumin 2.6 g/dL (3.4-5.0) Albumin/Globulin Ratio 0.4 (1.0-1.7) Test 12/17/16 07:09 12/17/16 11:35 12/17/16 14:52 12/17/16 16:45 Glucose (Fingerstick) 184 mg/dL (70-99) 188 mg/dL (70-99) 208 mg/dL (70-99) 258 mg/dL (70-99) Laboratory Tests Test 12/16/16 20:45 12/17/16 06:30 12/17/16 07:09 12/17/16 11:35 Glucose (Fingerstick) 130 mg/dL (70-99) 184 mg/dL (70-99) 188 mg/dL (70-99) White Blood Count 9.3 x10^3/uL (4.0-11.0) Red Blood Count 4.09 x10^6/uL (3.50-5.40) Hemoglobin 10.0 g/dL (12.0-15.5) Hematocrit 30.9 % (36.0-47.0) Mean Corpuscular Volume 76 fL (79-100) Mean Corpuscular Hemoglobin 25 pg (25-35) Mean Corpuscular Hemoglobin Concent 32 g/dL (31-37) Red Cell Distribution Width 16.4 % (11.5-14.5) Platelet Count 475 x10^3/uL (140-400) Neutrophils (%) (Auto) 63 % (31-73) Lymphocytes (%) (Auto) 25 % (24-48) Monocytes (%) (Auto) 9 % (0-9) Eosinophils (%) (Auto) 3 % (0-3) Basophils (%) (Auto) 0 % (0-3) Neutrophils # (Auto) 5.9 x10^3uL (1.8-7.7) Lymphocytes # (Auto) 2.3 x10^3/uL (1.0-4.8) Monocytes # (Auto) 0.8 x10^3/uL (0.0-1.1) Eosinophils # (Auto) 0.3 x10^3/uL (0.0-0.7) Basophils # (Auto) 0.0 x10^3/uL (0.0-0.2) Sodium Level 132 mmol/L (136-145) Potassium Level 4.9 mmol/L (3.5-5.1) Chloride Level 100 mmol/L (98-107) Carbon Dioxide Level 21 mmol/L (21-32) Anion Gap 11 (6-14) Blood Urea Nitrogen 40 mg/dL (7-20) Creatinine 2.0 mg/dL (0.6-1.0) Estimated GFR (Cockcroft-Gault) 32.2 BUN/Creatinine Ratio 20 (6-20) Glucose Level 185 mg/dL (70-99) Calcium Level 9.4 mg/dL (8.5-10.1) Total Bilirubin 0.3 mg/dL (0.2-1.0) Aspartate Amino Transf (AST/SGOT) 30 U/L (15-37) Alanine Aminotransferase (ALT/SGPT) 44 U/L (14-59) Alkaline Phosphatase 81 U/L (46-116) Total Protein 8.8 g/dL (6.4-8.2) Albumin 2.6 g/dL (3.4-5.0) Albumin/Globulin Ratio 0.4 (1.0-1.7) Test 12/17/16 14:52 12/17/16 16:45 Glucose (Fingerstick) 208 mg/dL (70-99) 258 mg/dL (70-99) Medications Current Medications Sodium Chloride 1,000 ml @ 100 mls/hr Q10H IV Last administered on 12/16/16 13:48; Start 12/16/16 at 13:27; Stop 12/16/16 at 23:26; Status DC Enoxaparin Sodium (Lovenox 40mg Syringe) 40 mg Q24H SQ Last administered on 15:11; Start 12/16/16 at 14:00; Stop 12/17/16 at 13:32; Status DC Piperacillin Sod/ Tazobactam Sod 3.375 gm/Sodium Chloride 50 ml @ 100 mls/hr Q6HRS IV ; Start 12/16/16 at 20:00; Stop 12/16/16 at 20:11; Status DC Vancomycin HCl (Vanco Per Pharmacy) 1 each PRN DAILY PRN MC SEE COMMENTS Last administered on 12/16/16 16:19; Start 12/16/16 at 13:30; Stop 12/17/16 at 08:48 ; Status DC Insulin Aspart (NovoLOG) 30 units TIDWMEALS SQ Last administered on 12/17/16 17:03; Start 12/16/16 at 17:00 Albuterol/ Ipratropium (Duoneb) 3 ml RTQID NEB Last administered on 12/17/16 11:07; Start 12/16/16 at 16:00 Metformin HCl (Glucophage) 500 mg BIDWMEALS PO Last administered on 12/17/16 17:00; Start 12/16/16 at 17:00 Albuterol Sulfate (Ventolin Neb Soln) 2.5 mg PRN Q6HRS PRN NEB SHORTNESS OF BREATH; Start 12/16/16 at 13:45 Non-Formulary Medication 100 units DAILY SQ ; Start 12/17/16 at 09:00; Status UNV Lisinopril (Prinivil) 20 mg BID PO Last administered on 12/16/16 22:38; Start 12/16/16 at 21:00 Budesonide (Pulmicort) 0.5 mg RTBID NEB Last administered on 12/17/16 07:18; Start 12/16/16 at 20:00 Atorvastatin Calcium (Lipitor) 80 mg QHS PO Last administered on 12/16/16 20: 30; Start 12/16/16 at 21:00 Insulin Aspart (NovoLOG) 0-12 UNITS QIDACHS SQ Last administered on 12/17/16 11:49; Start 12/16/16 at 16:30 Hydrochlorothiazide (Hydrodiuril) 25 mg BID PO Last administered on 12/16/16 22:34; Start 12/16/16 at 21:00 Vancomycin HCl 2 gm/Sodium Chloride 500 ml @ 250 mls/hr 1X ONCE IV Last administered on 12/16/16 15:12; Start 12/16/16 at 15:00; Stop 12/16/16 at 16:59 ; Status DC Piperacillin Sod/ Tazobactam Sod 3.375 gm/Sodium Chloride 50 ml @ 100 mls/hr 1X ONCE IV Last administered on 12/16/16 14:10; Start 12/16/16 at 14:00; Stop 12/16/16 at 20:11; Status DC Diphenhydramine HCl (Benadryl) 50 mg 1X ONCE IVP Last administered on 15:08; Start 12/16/16 at 15:00; Stop 12/16/16 at 15:01; Status DC Acetaminophen/ Hydrocodone Bitart (Lortab 7.5/325) 1 tab PRN Q6HRS PRN PO PAIN Last administered on 12/17/16 08:38; Start 12/16/16 at 15:00 Acetaminophen (Tylenol) 650 mg PRN Q6HRS PRN PO MILD PAIN; Start 12/16/16 at 15 :00 Vancomycin HCl 2 gm/Sodium Chloride 500 ml @ 250 mls/hr Q24H IV ; Start at 15:00; Stop 12/17/16 at 15:00; Status DC Vancomycin HCl 1 each 1X ONCE MC ; Start 12/16/16 at 16:30; Stop 12/16/16 at 16 :31; Status Cancel Vancomycin HCl 1 each 1X ONCE MC ; Start 12/18/16 at 14:30; Stop 12/18/16 at 14 :31; Status Cancel Pneumococcal Polyvalent Vaccine (Do NOT chart on this placeholder) 1 each PRN 1X PRN MC SEE COMMENTS; Start 12/16/16 at 17:00; Status UNV Info (Do NOT chart on this placeholder) 1 each PRN 1X PRN MC SEE COMMENTS; Start 12/16/16 at 17:00; Status UNV Influenza Virus Vaccine Quadrival (Fluarix Quad [id number] Syringe) 0.5 ml ONCE ONCE VAX IM ; Start 12/16/16 at 18:00; Stop 12/16/16 at 18:04; Status DC Pneumococcal Polyvalent Vaccine (Pneumovax 23) 0.5 ml ONCE ONCE VAX IM ; Start 12/16/16 at 18:00; Stop 12/16/16 at 18:04; Status DC Diphenhydramine HCl (Benadryl) 25 mg PRN Q6HRS PRN PO ITCHING Last administered on 12/16/16 20:30; Start 12/16/16 at 20:15 Meropenem 500 mg/ Sodium Chloride 50 ml @ 100 mls/hr Q8HRS IV Last administered on 12/17/16 13:27; Start 12/16/16 at 22:00 Linezolid (Zyvox) 600 mg BID PO Last administered on 12/17/16 10:00; Start at 09:00 Ondansetron HCl (Zofran) 4 mg PRN Q6HRS PRN IV NAUSEA/VOMITING; Start 12/17/16 at 11:00; Stop 12/17/16 at 18:00; Status DC Morphine Sulfate 1 mg PRN Q10MIN PRN IV SEVERE PAIN; Start 12/17/16 at 11:00; Stop 12/17/16 at 18:00; Status DC Ringer's Solution 1,000 ml @ 30 mls/hr Q24H IV Last administered on 12/17/16 10:46; Start 12/17/16 at 10:46; Stop 12/17/16 at 22:45 Lidocaine HCl (Xylocaine-Mpf 1% Vial) 2 ml 1X PRN PRN ID IV START; Start at 11:00; Stop 12/17/16 at 11:00; Status DC Hydromorphone HCl (Dilaudid) 0.5 mg PRN Q10MIN PRN IV SEV PAIN, Second choice Last administered on 12/17/16 15:44; Start 12/17/16 at 11:00; Stop 12/17/16 at 18:00; Status DC Prochlorperazine Edisylate (Compazine) 5 mg PACU PRN PRN IV NAUSEA, MRX1; Start 12/17/16 at 11:00; Stop 12/17/16 at 18:00; Status DC Fentanyl Citrate (Fentanyl 2ml Vial) 100 mcg STK-MED ONCE .ROUTE ; Start at 12:20; Stop 12/17/16 at 12:21; Status DC Midazolam HCl (Versed) 2 mg STK-MED ONCE .ROUTE ; Start 12/17/16 at 12:21; Stop 12/17/16 at 12:22; Status DC Propofol 20 ml @ As Directed STK-MED ONCE IV ; Start 12/17/16 at 12:21; Stop at 12:22; Status DC Dexamethasone Sodium Phosphate (Decadron) 20 mg STK-MED ONCE .ROUTE ; Start 12/17/16 at 12:22; Stop 12/17/16 at 12:23; Status DC Ondansetron HCl (Zofran) 4 mg STK-MED ONCE .ROUTE ; Start 12/17/16 at 12:23; Stop 12/17/16 at 12:24; Status DC Succinylcholine Chloride (Anectine) 200 mg STK-MED ONCE .ROUTE ; Start 12/17/16 at 12:23; Stop 12/17/16 at 12:24; Status DC Ketamine HCl 500 mg STK-MED ONCE .ROUTE ; Start 12/17/16 at 12:39; Stop at 12:40; Status DC Famotidine (Pepcid) 20 mg STK-MED ONCE .ROUTE ; Start 12/17/16 at 12:39; Stop 12/17/16 at 12:40; Status DC Enoxaparin Sodium (Lovenox 60mg Syringe) 60 mg Q12H SQ ; Start 12/17/16 at 14:00 Propofol 20 ml @ As Directed STK-MED ONCE IV ; Start 12/17/16 at 13:38; Stop at 13:39; Status DC Propofol 20 ml @ As Directed STK-MED ONCE IV ; Start 12/17/16 at 13:38; Stop at 13:39; Status DC Phenylephrine HCl 1 mg STK-MED ONCE IV ; Start 12/17/16 at 13:59; Stop 12/17/16 at 14:00; Status DC Propofol 20 ml @ As Directed STK-MED ONCE IV ; Start 12/17/16 at 14:18; Stop at 14:19; Status DC Desflurane (Suprane) 60 ml STK-MED ONCE IH ; Start 12/17/16 at 14:21; Stop 12/17 at 14:22; Status DC Insulin Aspart (NovoLOG VIAL) 100 unit STK-MED ONCE SQ ; Start 12/17/16 at 15:05 ; Stop 12/17/16 at 15:06; Status DC Insulin Aspart (NovoLOG VIAL) 4 unit 1X ONCE SQ Last administered on t 15:11; Start 12/17/16 at 15:15; Stop 12/17/16 at 15:16; Status DC Active Scripts Active Bactrim Ds Tablet (Sulfamethoxazole/Trimethoprim) 1 Each Tablet 1 Tab PO BID Reported Dulera 200 Mcg/5 Mcg Inhaler (Mometasone/Formoterol) 13 Gm Hfa.aer.ad 2 Puff IH BID Proair Hfa Inhaler (Albuterol Sulfate) 8.5 Gm Hfa.aer.ad 1 Puff INH PRN Q6HRS PRN Duoneb 0.5-3(2.5) Mg/3 Ml (Albuterol/Ipratropium) 3 Ml Ampul.neb 3 Ml NEB QID Metformin Hcl 500 Mg Tablet 500 Mg PO BID Lisinopril-Hctz 20-25 Mg Tab (Lisinopril/Hydrochlorothiazide) 1 Each Tablet 1 Tab PO BID Tresiba Flextouch U-100 (Insulin Degludec) 100 Unit/1 Ml Insuln.pen 100 Units SQ DAILY Rosuvastatin Calcium 20 Mg Tablet 20 Mg PO HS Novolog Flexpen (Insulin Aspart) 100 Unit/1 Ml Insuln.pen 30 Units SQ TIDWMEALS Farxiga (Dapagliflozin Propanediol) 10 Mg Tablet 10 Mg PO DAILY Vitals/I & O Vital Sign - Last 24 Hours 12/16/16 12/16/16 12/16/16 12/16/16 19:57 20:00 20:18 22:38 Temp 97.5 97.5 Pulse 93 93 Resp 16 B/P (MAP) 94/48 (63) 112/52 Pulse Ox 98 98 O2 Delivery Room Air Room Air Room Air 10/05/0312/16/16 12/16/16 12/17/16 22:39 23:27 23:39 03:33 Temp 97.8 97.7 97.8 97.7 Pulse 93 82 Resp 20 18 20 16 B/P (MAP) 112/52 (72) 113/63 (80) Pulse Ox 98 95 96 98 O2 Delivery Room Air Room Air Room Air 12/17/16 12/17/16 12/17/16 12/17/16 07:15 07:19 07:55 08:00 Temp 97.7 97.7 Pulse 79 Resp 18 B/P (MAP) 99/48 (65) Pulse Ox 96 98 O2 Delivery Room Air Room Air Room Air Room Air 12/17/16 12/17/16 12/17/16 12/17/16 08:38 10:00 11:08 11:13 Temp 97.6 97.6 Pulse 91 Resp 20 B/P (MAP) 91/47 (62) Pulse Ox 96 O2 Delivery Room Air Room Air Room Air Room Air 12/17/16 12/17/16 12/17/16 12/17/16 11:22 12:15 14:35 14:35 Temp 97.5 98.7 97.5 98.7 Pulse 91 90 98 Resp 20 20 B/P (MAP) 99/47 104/56 178/87 Pulse Ox 96 100 O2 Delivery Room Air Mask Simple Mask O2 Flow Rate 10 10 12/17/16 12/17/16 12/17/16 12/17/16 14:50 15:05 15:20 15:35 Temp 97.7 97.7 Pulse 102 97 96 96 Resp 24 20 17 20 B/P (MAP) 144/68 132/64 138/64 133/63 Pulse Ox 100 96 97 94 O2 Delivery Simple Mask Room Air Room Air Room Air O2 Flow Rate 10 12/17/16 12/17/16 12/17/16 12/17/16 16:00 16:01 16:15 16:30 Temp 97.7 97.7 Pulse 96 89 Resp 18 16 20 B/P (MAP) 122/66 (84) 125/63 (83) 130/61 (84) Pulse Ox 95 O2 Delivery Nasal Cannula Nasal Cannula O2 Flow Rate 2.0 2.0 12/17/16 12/17/16 16:45 17:15 Temp 97.3 97.3 Pulse 81 Resp 18 B/P (MAP) 126/66 (86) 124/71 (88) Pulse Ox 96 O2 Delivery Nasal Cannula O2 Flow Rate 2.0 Intake and Output 12/17/16 12/17/16 12/18/16 15:00 23:00 07:00 Intake Total 300 ml 100 ml Output Total 0 ml Balance 300 ml 100 ml MALU HERRING MD Dec 17, 2016 18:20
[2016-12-17] MEDS: ATORVASTATIN CALCIUM 40 MG TABLET. PO SCH (21:12)
[2016-12-18] VITALS (7 sets, daily range): BP systolic 87–111; BP diastolic 34–54
[2016-12-18] MEDS: HYDROcodone/APAP 7.5/325MG 1 TAB TABLET PO PRN ×3 (06:12→20:35)
[2016-12-18] MEDS: MEROPENEM 500 MG in IV NORMAL SALINE 50ML 50 ML IV SCH (06:13)
[2016-12-18 06:24] LABS: INR 1.3 (0.8-1.1); PROTHROMBIN TIME PATIENT 15.5 SEC (11.7-14.0)
[2016-12-18 06:28] LABS: CALCIUM 9.5 mg/dL (8.5-10.1); CREATININE 1.9 mg/dL (0.6-1.0); GFR 34.1
[2016-12-18 06:33] LABS: POTASSIUM 5.6 mmol/L (3.5-5.1)
[2016-12-18] MEDS: IPRATRPIUM/ALBUTEROL 0.5/2.5MG 3 ML NEBU. NEB SCH ×4 (07:11→19:07)
[2016-12-18] MEDS: BUDESONIDE 0.5 MG/2 ML NEBU. NEB SCH ×2 (07:11→19:07)
[2016-12-18] MEDS: INSULIN ASPART 300 UNITS/3 ML INSULN.PEN SQ SCH ×7 (07:30→21:31)
[2016-12-18] MEDS: metFORMIN 500 MG TABLET PO SCH ×2 (08:33→16:50)
[2016-12-18] MEDS: LINEZOLID 600 MG TABLET PO SCH ×2 (08:33→21:24)
[2016-12-18] MEDS: hydroCHLOROthiazide 25 MG TABLET PO SCH (08:37)
[2016-12-18] MEDS: LISINOPRIL 20 MG TABLET PO SCH (08:37)
[2016-12-18] MEDS: INSULIN DEGLUDEC 100 UNIT SQ SCH (08:41)
--- NOTE | 2016-12-18 08:53 | PDOC ---
Infectious Disease Note Subjective Subjective Doing ok. min pain ROS ROS GEN: Denies fevers, chills, sweats HEENT: Denies blurred vision, sore throat CV: Denies chest pain RESP: Denies shortness of air, cough GI: Denies n/v/d NEURO: Denies confusion, dizziness MSK: Denies weakness, joint pain/swelling Vital Sign Vital Signs Vital Signs Date Time Temp Pulse Resp B/P (MAP) Pulse Ox O2 Delivery O2 Flow Rate FiO2 12/18/16 08:42 87 111/51 (71) 12/18/16 08:10 Room Air 12/18/16 07:15 98.0 18 97 98.0 12/17/16 17:15 2.0 Physical Exam PHYSICAL EXAM GENERAL: NAD, Alert. in chair and eating HEENT: PERRL, OC/OP -clear NECK: Supple, no JVD, no LN LUNGS: Clear HEART: S1S2, no gallop, no murmur ABD: Soft, NT, Obese, no rebound EXT: No edema, no cyanosis DRUG SAFETY DATA MANAGEMENT SPECIALIST: Alert, oriented x 3, no focal neurologic deficit SKIN: No rash IV: ok Labs Lab Laboratory Tests Test 12/17/16 11:35 12/17/16 14:52 12/17/16 16:45 12/17/16 21:02 Glucose (Fingerstick) 188 mg/dL (70-99) 208 mg/dL (70-99) 258 mg/dL (70-99) 290 mg/dL (70-99) Test 12/18/16 04:50 12/18/16 07:11 Prothrombin Time 15.5 SEC (11.7-14.0) Prothromb Time International Ratio 1.3 (0.8-1.1) Sodium Level 135 mmol/L (136-145) Potassium Level 5.6 mmol/L (3.5-5.1) Chloride Level 102 mmol/L (98-107) Carbon Dioxide Level 22 mmol/L (21-32) Anion Gap 11 (6-14) Blood Urea Nitrogen 46 mg/dL (7-20) Creatinine 1.9 mg/dL (0.6-1.0) Estimated GFR (Cockcroft-Gault) 34.1 Glucose Level 144 mg/dL (70-99) Calcium Level 9.5 mg/dL (8.5-10.1) Glucose (Fingerstick) 137 mg/dL (70-99) Objective Assessment Right perirectal abscess - s/p I and D 12/17 - vac in place ? zosyn reaction - itch but has tolerated augmentin GRICEL - ? Bactrim +/- Dm. better DM Plan Plan of Care Cont Meropenem but increase dose/.zyvox F/u cultures from Dr. Tran's office and hope to change to po in next day or so based on cults for discharge F/u labs BELEN CHRISTIAN MD Dec 18, 2016 08:53
[2016-12-18] MEDS ORDERED: MEROPENEM 500 MG in IV NORMAL SALINE 50ML 50 ML IV ONE (10:00)
--- NOTE | 2016-12-18 13:03 | PDOC ---
SURGICAL PROGRESS NOTE Subjective up to chair while bed is being changed pain controlled Vital Signs Vital Signs Date Time Temp Pulse Resp B/P (MAP) Pulse Ox O2 Delivery O2 Flow Rate FiO2 12/18/16 11:00 98.2 88 18 98/54 (69) 96 Room Air 98.2 12/17/16 17:15 2.0 I&O Intake and Output 12/19/16 07:00 Intake Total 50 ml Balance 50 ml IV Total 50 ml PATIENT HAS A SNEED: No General: Alert, Oriented X3 Skin: Other (wound vac on ) Labs Laboratory Tests Test 12/16/16 14:40 12/16/16 17:01 12/16/16 20:45 12/17/16 06:30 White Blood Count 10.0 x10^3/uL (4.0-11.0) 9.3 x10^3/uL (4.0-11.0) Red Blood Count 4.28 x10^6/uL (3.50-5.40) 4.09 x10^6/uL (3.50-5.40) Hemoglobin 10.5 g/dL (12.0-15.5) 10.0 g/dL (12.0-15.5) Hematocrit 32.1 % (36.0-47.0) 30.9 % (36.0-47.0) Mean Corpuscular Volume 75 fL (79-100) 76 fL (79-100) Mean Corpuscular Hemoglobin 25 pg (25-35) 25 pg (25-35) Mean Corpuscular Hemoglobin Concent 33 g/dL (31-37) 32 g/dL (31-37) Red Cell Distribution Width 16.3 % (11.5-14.5) 16.4 % (11.5-14.5) Platelet Count 527 x10^3/uL (140-400) 475 x10^3/uL (140-400) Neutrophils (%) (Auto) 60 % (31-73) 63 % (31-73) Lymphocytes (%) (Auto) 28 % (24-48) 25 % (24-48) Monocytes (%) (Auto) 10 % (0-9) 9 % (0-9) Eosinophils (%) (Auto) 2 % (0-3) 3 % (0-3) Basophils (%) (Auto) 0 % (0-3) 0 % (0-3) Neutrophils # (Auto) 6.0 x10^3uL (1.8-7.7) 5.9 x10^3uL (1.8-7.7) Lymphocytes # (Auto) 2.8 x10^3/uL (1.0-4.8) 2.3 x10^3/uL (1.0-4.8) Monocytes # (Auto) 1.0 x10^3/uL (0.0-1.1) 0.8 x10^3/uL (0.0-1.1) Eosinophils # (Auto) 0.2 x10^3/uL (0.0-0.7) 0.3 x10^3/uL (0.0-0.7) Basophils # (Auto) 0.0 x10^3/uL (0.0-0.2) 0.0 x10^3/uL (0.0-0.2) Sodium Level 134 mmol/L (136-145) 132 mmol/L (136-145) Potassium Level 4.8 mmol/L (3.5-5.1) 4.9 mmol/L (3.5-5.1) Chloride Level 100 mmol/L (98-107) 100 mmol/L (98-107) Carbon Dioxide Level 21 mmol/L (21-32) 21 mmol/L (21-32) Anion Gap 13 (6-14) 11 (6-14) Blood Urea Nitrogen 36 mg/dL (7-20) 40 mg/dL (7-20) Creatinine 2.2 mg/dL (0.6-1.0) 2.0 mg/dL (0.6-1.0) Estimated GFR (Cockcroft-Gault) 28.8 32.2 Glucose Level 227 mg/dL (70-99) 185 mg/dL (70-99) Calcium Level 9.4 mg/dL (8.5-10.1) 9.4 mg/dL (8.5-10.1) Glucose (Fingerstick) 237 mg/dL (70-99) 130 mg/dL (70-99) BUN/Creatinine Ratio 20 (6-20) Total Bilirubin 0.3 mg/dL (0.2-1.0) Aspartate Amino Transf (AST/SGOT) 30 U/L (15-37) Alanine Aminotransferase (ALT/SGPT) 44 U/L (14-59) Alkaline Phosphatase 81 U/L (46-116) Total Protein 8.8 g/dL (6.4-8.2) Albumin 2.6 g/dL (3.4-5.0) Albumin/Globulin Ratio 0.4 (1.0-1.7) Test 12/17/16 07:09 12/17/16 11:35 12/17/16 14:52 12/17/16 16:45 Glucose (Fingerstick) 184 mg/dL (70-99) 188 mg/dL (70-99) 208 mg/dL (70-99) 258 mg/dL (70-99) Test 12/17/16 21:02 12/18/16 04:50 12/18/16 07:11 12/18/16 11:38 Glucose (Fingerstick) 290 mg/dL (70-99) 137 mg/dL (70-99) 88 mg/dL (70-99) Prothrombin Time 15.5 SEC (11.7-14.0) Prothromb Time International Ratio 1.3 (0.8-1.1) Sodium Level 135 mmol/L (136-145) Potassium Level 5.6 mmol/L (3.5-5.1) Chloride Level 102 mmol/L (98-107) Carbon Dioxide Level 22 mmol/L (21-32) Anion Gap 11 (6-14) Blood Urea Nitrogen 46 mg/dL (7-20) Creatinine 1.9 mg/dL (0.6-1.0) Estimated GFR (Cockcroft-Gault) 34.1 Glucose Level 144 mg/dL (70-99) Calcium Level 9.5 mg/dL (8.5-10.1) Laboratory Tests Test 12/17/16 14:52 12/17/16 16:45 12/17/16 21:02 12/18/16 04:50 Glucose (Fingerstick) 208 mg/dL (70-99) 258 mg/dL (70-99) 290 mg/dL (70-99) Prothrombin Time 15.5 SEC (11.7-14.0) Prothromb Time International Ratio 1.3 (0.8-1.1) Sodium Level 135 mmol/L (136-145) Potassium Level 5.6 mmol/L (3.5-5.1) Chloride Level 102 mmol/L (98-107) Carbon Dioxide Level 22 mmol/L (21-32) Anion Gap 11 (6-14) Blood Urea Nitrogen 46 mg/dL (7-20) Creatinine 1.9 mg/dL (0.6-1.0) Estimated GFR (Cockcroft-Gault) 34.1 Glucose Level 144 mg/dL (70-99) Calcium Level 9.5 mg/dL (8.5-10.1) Test 12/18/16 07:11 12/18/16 11:38 Glucose (Fingerstick) 137 mg/dL (70-99) 88 mg/dL (70-99) Assessment/Plan POD 1 excisional debridement right sided perirectal abscess continue wound care Problems: CONSUELO ROUSE MD Dec 18, 2016 13:03
--- NOTE | 2016-12-18 17:40 | PDOC ---
PROGRESS NOTES Subjective Subjective Patient feeling better tolerating postop day 1 from incision and drainage and debridement of gluteal abscess. does complain of some cough and congestion post surgery. Patient still on IV antibiotics and sensitivities are still pending from previous culture. Patient having lower blood sugars and blood pressures during hospital stay due to controlled diet and medication use. Recommend decreasing dose of medications. Objective Objective Vital Signs Date Time Temp Pulse Resp B/P (MAP) Pulse Ox O2 Delivery O2 Flow Rate FiO2 12/18/16 15:31 Room Air 12/18/16 15:13 98.2 90 18 99/47 (64) 97 98.2 12/17/16 17:15 2.0 Intake and Output 12/19/16 07:00 Intake Total 290 ml Balance 290 ml Intake Oral 240 ml IV Total 50 ml Physical Exam Abdomen: Normal bowel sounds Heart: No murmurs Extremities: No clubbing General: Alert Lungs: Clear to auscultation Assessment Assessment Sepsis resolving Perirectal abscess status post incision and drainage and debridement. Postop day 1 Acute renal failure resolving Type 2 diabetes, out of control. Hypertension. High cholesterol. Moderate persistent asthma. Morbid obesity. Obstructive sleep apnea. Anxiety, depression. Plan Plan of Care Continue IV antibiotics. Continue wound care. Change to by mouth antibiotics and discharged to home with wound clinic follow- up. Decreased blood pressure medication and insulin due to low blood sugars and blood pressure. Comment Review of Relevant I have reviewed the following items nir (where applicable) has been applied. Labs Laboratory Tests Test 12/16/16 20:45 12/17/16 06:30 12/17/16 07:09 12/17/16 11:35 Glucose (Fingerstick) 130 mg/dL (70-99) 184 mg/dL (70-99) 188 mg/dL (70-99) White Blood Count 9.3 x10^3/uL (4.0-11.0) Red Blood Count 4.09 x10^6/uL (3.50-5.40) Hemoglobin 10.0 g/dL (12.0-15.5) Hematocrit 30.9 % (36.0-47.0) Mean Corpuscular Volume 76 fL (79-100) Mean Corpuscular Hemoglobin 25 pg (25-35) Mean Corpuscular Hemoglobin Concent 32 g/dL (31-37) Red Cell Distribution Width 16.4 % (11.5-14.5) Platelet Count 475 x10^3/uL (140-400) Neutrophils (%) (Auto) 63 % (31-73) Lymphocytes (%) (Auto) 25 % (24-48) Monocytes (%) (Auto) 9 % (0-9) Eosinophils (%) (Auto) 3 % (0-3) Basophils (%) (Auto) 0 % (0-3) Neutrophils # (Auto) 5.9 x10^3uL (1.8-7.7) Lymphocytes # (Auto) 2.3 x10^3/uL (1.0-4.8) Monocytes # (Auto) 0.8 x10^3/uL (0.0-1.1) Eosinophils # (Auto) 0.3 x10^3/uL (0.0-0.7) Basophils # (Auto) 0.0 x10^3/uL (0.0-0.2) Sodium Level 132 mmol/L (136-145) Potassium Level 4.9 mmol/L (3.5-5.1) Chloride Level 100 mmol/L (98-107) Carbon Dioxide Level 21 mmol/L (21-32) Anion Gap 11 (6-14) Blood Urea Nitrogen 40 mg/dL (7-20) Creatinine 2.0 mg/dL (0.6-1.0) Estimated GFR (Cockcroft-Gault) 32.2 BUN/Creatinine Ratio 20 (6-20) Glucose Level 185 mg/dL (70-99) Calcium Level 9.4 mg/dL (8.5-10.1) Total Bilirubin 0.3 mg/dL (0.2-1.0) Aspartate Amino Transf (AST/SGOT) 30 U/L (15-37) Alanine Aminotransferase (ALT/SGPT) 44 U/L (14-59) Alkaline Phosphatase 81 U/L (46-116) Total Protein 8.8 g/dL (6.4-8.2) Albumin 2.6 g/dL (3.4-5.0) Albumin/Globulin Ratio 0.4 (1.0-1.7) Test 12/17/16 14:52 12/17/16 16:45 12/17/16 21:02 12/18/16 04:50 Glucose (Fingerstick) 208 mg/dL (70-99) 258 mg/dL (70-99) 290 mg/dL (70-99) Prothrombin Time 15.5 SEC (11.7-14.0) Prothromb Time International Ratio 1.3 (0.8-1.1) Sodium Level 135 mmol/L (136-145) Potassium Level 5.6 mmol/L (3.5-5.1) Chloride Level 102 mmol/L (98-107) Carbon Dioxide Level 22 mmol/L (21-32) Anion Gap 11 (6-14) Blood Urea Nitrogen 46 mg/dL (7-20) Creatinine 1.9 mg/dL (0.6-1.0) Estimated GFR (Cockcroft-Gault) 34.1 Glucose Level 144 mg/dL (70-99) Calcium Level 9.5 mg/dL (8.5-10.1) Test 12/18/16 07:11 12/18/16 11:38 12/18/16 16:25 Glucose (Fingerstick) 137 mg/dL (70-99) 88 mg/dL (70-99) 183 mg/dL (70-99) Laboratory Tests Test 12/17/16 21:02 12/18/16 04:50 12/18/16 07:11 12/18/16 11:38 Glucose (Fingerstick) 290 mg/dL (70-99) 137 mg/dL (70-99) 88 mg/dL (70-99) Prothrombin Time 15.5 SEC (11.7-14.0) Prothromb Time International Ratio 1.3 (0.8-1.1) Sodium Level 135 mmol/L (136-145) Potassium Level 5.6 mmol/L (3.5-5.1) Chloride Level 102 mmol/L (98-107) Carbon Dioxide Level 22 mmol/L (21-32) Anion Gap 11 (6-14) Blood Urea Nitrogen 46 mg/dL (7-20) Creatinine 1.9 mg/dL (0.6-1.0) Estimated GFR (Cockcroft-Gault) 34.1 Glucose Level 144 mg/dL (70-99) Calcium Level 9.5 mg/dL (8.5-10.1) Test 12/18/16 16:25 Glucose (Fingerstick) 183 mg/dL (70-99) Microbiology 12/17/16 Gram Stain - Final, Complete Medications Current Medications Sodium Chloride 1,000 ml @ 100 mls/hr Q10H IV Last administered on 12/16/16 13:48; Start 12/16/16 at 13:27; Stop 12/16/16 at 23:26; Status DC Enoxaparin Sodium (Lovenox 40mg Syringe) 40 mg Q24H SQ Last administered on 15:11; Start 12/16/16 at 14:00; Stop 12/17/16 at 13:32; Status DC Piperacillin Sod/ Tazobactam Sod 3.375 gm/Sodium Chloride 50 ml @ 100 mls/hr Q6HRS IV ; Start 12/16/16 at 20:00; Stop 12/16/16 at 20:11; Status DC Vancomycin HCl (Vanco Per Pharmacy) 1 each PRN DAILY PRN MC SEE COMMENTS Last administered on 12/16/16 16:19; Start 12/16/16 at 13:30; Stop 12/17/16 at 08:48 ; Status DC Insulin Aspart (NovoLOG) 30 units TIDWMEALS SQ Last administered on 12/18/16 08:37; Start 12/16/16 at 17:00; Stop 12/18/16 at 12:56; Status DC Albuterol/ Ipratropium (Duoneb) 3 ml RTQID NEB Last administered on 12/18/16 15:30; Start 12/16/16 at 16:00 Metformin HCl (Glucophage) 500 mg BIDWMEALS PO Last administered on 12/18/16 16:50; Start 12/16/16 at 17:00 Albuterol Sulfate (Ventolin Neb Soln) 2.5 mg PRN Q6HRS PRN NEB SHORTNESS OF BREATH; Start 12/16/16 at 13:45 Non-Formulary Medication 100 units DAILY SQ ; Start 12/17/16 at 09:00; Status UNV Lisinopril (Prinivil) 20 mg BID PO Last administered on 12/17/16 21:12; Start 12/16/16 at 21:00; Stop 12/18/16 at 12:56; Status DC Budesonide (Pulmicort) 0.5 mg RTBID NEB Last administered on 12/18/16 07:11; Start 12/16/16 at 20:00 Atorvastatin Calcium (Lipitor) 80 mg QHS PO Last administered on 12/17/16 21: 12; Start 12/16/16 at 21:00 Insulin Aspart (NovoLOG) 0-12 UNITS QIDACHS SQ Last administered on 12/17/16 21:18; Start 12/16/16 at 16:30 Hydrochlorothiazide (Hydrodiuril) 25 mg BID PO Last administered on 12/17/16 21:11; Start 12/16/16 at 21:00; Stop 12/18/16 at 12:56; Status DC Vancomycin HCl 2 gm/Sodium Chloride 500 ml @ 250 mls/hr 1X ONCE IV Last administered on 12/16/16 15:12; Start 12/16/16 at 15:00; Stop 12/16/16 at 16:59 ; Status DC Piperacillin Sod/ Tazobactam Sod 3.375 gm/Sodium Chloride 50 ml @ 100 mls/hr 1X ONCE IV Last administered on 12/16/16 14:10; Start 12/16/16 at 14:00; Stop 12/16/16 at 20:11; Status DC Diphenhydramine HCl (Benadryl) 50 mg 1X ONCE IVP Last administered on 15:08; Start 12/16/16 at 15:00; Stop 12/16/16 at 15:01; Status DC Acetaminophen/ Hydrocodone Bitart (Lortab 7.5/325) 1 tab PRN Q6HRS PRN PO PAIN Last administered on 12/18/16 13:03; Start 12/16/16 at 15:00 Acetaminophen (Tylenol) 650 mg PRN Q6HRS PRN PO MILD PAIN; Start 12/16/16 at 15 :00 Vancomycin HCl 2 gm/Sodium Chloride 500 ml @ 250 mls/hr Q24H IV ; Start at 15:00; Stop 12/17/16 at 15:00; Status DC Vancomycin HCl 1 each 1X ONCE MC ; Start 12/16/16 at 16:30; Stop 12/16/16 at 16 :31; Status Cancel Vancomycin HCl 1 each 1X ONCE MC ; Start 12/18/16 at 14:30; Stop 12/18/16 at 14 :31; Status Cancel Pneumococcal Polyvalent Vaccine (Do NOT chart on this placeholder) 1 each PRN 1X PRN MC SEE COMMENTS; Start 12/16/16 at 17:00; Status UNV Info (Do NOT chart on this placeholder) 1 each PRN 1X PRN MC SEE COMMENTS; Start 12/16/16 at 17:00; Status UNV Influenza Virus Vaccine Quadrival (Fluarix Quad [id number] Syringe) 0.5 ml ONCE ONCE VAX IM ; Start 12/16/16 at 18:00; Stop 12/16/16 at 18:04; Status DC Pneumococcal Polyvalent Vaccine (Pneumovax 23) 0.5 ml ONCE ONCE VAX IM ; Start 12/16/16 at 18:00; Stop 12/16/16 at 18:04; Status DC Diphenhydramine HCl (Benadryl) 25 mg PRN Q6HRS PRN PO ITCHING Last administered on 12/16/16 20:30; Start 12/16/16 at 20:15 Meropenem 500 mg/ Sodium Chloride 50 ml @ 100 mls/hr Q8HRS IV Last administered on 12/18/16 06:13; Start 12/16/16 at 22:00; Stop 12/18/16 at 08:53 ; Status DC Linezolid (Zyvox) 600 mg BID PO Last administered on 12/18/16 08:33; Start at 09:00 Ondansetron HCl (Zofran) 4 mg PRN Q6HRS PRN IV NAUSEA/VOMITING; Start 12/17/16 at 11:00; Stop 12/17/16 at 18:00; Status DC Morphine Sulfate 1 mg PRN Q10MIN PRN IV SEVERE PAIN; Start 12/17/16 at 11:00; Stop 12/17/16 at 18:00; Status DC Ringer's Solution 1,000 ml @ 30 mls/hr Q24H IV Last administered on 12/17/16 10:46; Start 12/17/16 at 10:46; Stop 12/17/16 at 22:45; Status DC Lidocaine HCl (Xylocaine-Mpf 1% Vial) 2 ml 1X PRN PRN ID IV START; Start at 11:00; Stop 12/17/16 at 11:00; Status DC Hydromorphone HCl (Dilaudid) 0.5 mg PRN Q10MIN PRN IV SEV PAIN, Second choice Last administered on 12/17/16 15:44; Start 12/17/16 at 11:00; Stop 12/17/16 at 18:00; Status DC Prochlorperazine Edisylate (Compazine) 5 mg PACU PRN PRN IV NAUSEA, MRX1; Start 12/17/16 at 11:00; Stop 12/17/16 at 18:00; Status DC Fentanyl Citrate (Fentanyl 2ml Vial) 100 mcg STK-MED ONCE .ROUTE ; Start at 12:20; Stop 12/17/16 at 12:21; Status DC Midazolam HCl (Versed) 2 mg STK-MED ONCE .ROUTE ; Start 12/17/16 at 12:21; Stop 12/17/16 at 12:22; Status DC Propofol 20 ml @ As Directed STK-MED ONCE IV ; Start 12/17/16 at 12:21; Stop at 12:22; Status DC Dexamethasone Sodium Phosphate (Decadron) 20 mg STK-MED ONCE .ROUTE ; Start 12/17/16 at 12:22; Stop 12/17/16 at 12:23; Status DC Ondansetron HCl (Zofran) 4 mg STK-MED ONCE .ROUTE ; Start 12/17/16 at 12:23; Stop 12/17/16 at 12:24; Status DC Succinylcholine Chloride (Anectine) 200 mg STK-MED ONCE .ROUTE ; Start 12/17/16 at 12:23; Stop 12/17/16 at 12:24; Status DC Ketamine HCl 500 mg STK-MED ONCE .ROUTE ; Start 12/17/16 at 12:39; Stop at 12:40; Status DC Famotidine (Pepcid) 20 mg STK-MED ONCE .ROUTE ; Start 12/17/16 at 12:39; Stop 12/17/16 at 12:40; Status DC Enoxaparin Sodium (Lovenox 60mg Syringe) 60 mg Q12H SQ Last administered on 14:39; Start 12/17/16 at 14:00 Propofol 20 ml @ As Directed STK-MED ONCE IV ; Start 12/17/16 at 13:38; Stop at 13:39; Status DC Propofol 20 ml @ As Directed STK-MED ONCE IV ; Start 12/17/16 at 13:38; Stop at 13:39; Status DC Phenylephrine HCl 1 mg STK-MED ONCE IV ; Start 12/17/16 at 13:59; Stop 12/17/16 at 14:00; Status DC Propofol 20 ml @ As Directed STK-MED ONCE IV ; Start 12/17/16 at 14:18; Stop at 14:19; Status DC Desflurane (Suprane) 60 ml STK-MED ONCE IH ; Start 12/17/16 at 14:21; Stop 12/17 at 14:22; Status DC Insulin Aspart (NovoLOG VIAL) 100 unit STK-MED ONCE SQ ; Start 12/17/16 at 15:05 ; Stop 12/17/16 at 15:06; Status DC Insulin Aspart (NovoLOG VIAL) 4 unit 1X ONCE SQ Last administered on 15:11; Start 12/17/16 at 15:15; Stop 12/17/16 at 15:16; Status DC Meropenem 1 gm/ Sodium Chloride 100 ml @ 200 mls/hr Q12HR IV ; Start 12/18/16 at 21:00 Meropenem 500 mg/ Sodium Chloride 50 ml @ 100 mls/hr 1X ONCE IV Last administered on 12/18/16 09:59; Start 12/18/16 at 10:00; Stop 12/18/16 at 10:29 ; Status DC Insulin Aspart (NovoLOG) 20 units TIDWMEALS SQ Last administered on 12/18/16 16:53; Start 12/18/16 at 17:00 Lisinopril (Prinivil) 10 mg BID PO ; Start 12/18/16 at 21:00 Hydrochlorothiazide (Microzide) 12.5 mg BID PO ; Start 12/18/16 at 21:00 Active Scripts Active Bactrim Ds Tablet (Sulfamethoxazole/Trimethoprim) 1 Each Tablet 1 Tab PO BID Reported Dulera 200 Mcg/5 Mcg Inhaler (Mometasone/Formoterol) 13 Gm Hfa.aer.ad 2 Puff IH BID Proair Hfa Inhaler (Albuterol Sulfate) 8.5 Gm Hfa.aer.ad 1 Puff INH PRN Q6HRS PRN Duoneb 0.5-3(2.5) Mg/3 Ml (Albuterol/Ipratropium) 3 Ml Ampul.neb 3 Ml NEB QID Metformin Hcl 500 Mg Tablet 500 Mg PO BID Lisinopril-Hctz 20-25 Mg Tab (Lisinopril/Hydrochlorothiazide) 1 Each Tablet 1 Tab PO BID Tresiba Flextouch U-100 (Insulin Degludec) 100 Unit/1 Ml Insuln.pen 100 Units SQ DAILY Rosuvastatin Calcium 20 Mg Tablet 20 Mg PO HS Novolog Flexpen (Insulin Aspart) 100 Unit/1 Ml Insuln.pen 30 Units SQ TIDWMEALS Farxiga (Dapagliflozin Propanediol) 10 Mg Tablet 10 Mg PO DAILY Vitals/I & O Vital Sign - Last 24 Hours 12/17/16 12/17/16 12/17/16 12/17/16 17:45 18:58 19:45 19:54 Temp 97.6 97.6 Pulse 73 96 Resp 18 16 B/P (MAP) 131/66 (87) 105/50 (68) Pulse Ox 97 O2 Delivery Room Air Room Air Room Air 12/17/16 12/17/16 12/17/16 12/17/16 19:58 20:28 20:29 21:12 Pulse 96 Resp 20 B/P (MAP) 105/50 Pulse Ox 99 99 O2 Delivery Room Air Room Air 12/17/16 12/18/16 12/18/16 12/18/16 23:28 03:33 06:12 07:11 Temp 98.8 97.7 98.8 97.7 Pulse 91 87 Resp 18 16 20 B/P (MAP) 93/48 (63) 111/51 (71) Pulse Ox 97 98 96 O2 Delivery Room Air Room Air Room Air Room Air 12/18/16 12/18/16 12/18/16 12/18/16 07:15 07:30 08:37 08:42 Temp 98.0 98.0 Pulse 78 87 87 Resp 18 B/P (MAP) 87/34 (51) 111/51 111/51 (71) Pulse Ox 97 O2 Delivery Room Air Room Air 12/18/16 12/18/16 12/18/16 12/18/16 10:58 11:00 13:03 14:39 Temp 98.2 98.2 Pulse 88 Resp 18 B/P (MAP) 98/54 (69) Pulse Ox 96 O2 Delivery Room Air Room Air Room Air Room Air 12/18/16 12/18/16 15:13 15:31 Temp 98.2 98.2 Pulse 90 Resp 18 B/P (MAP) 99/47 (64) Pulse Ox 97 O2 Delivery Room Air Room Air Intake and Output 12/18/16 12/18/16 12/19/16 15:00 23:00 07:00 Intake Total 290 ml Balance 290 ml MALU HERRING MD Dec 18, 2016 17:40
[2016-12-18] MEDS: hydroCHLOROthiazide 12.5 MG CAPSULE PO SCH (21:00)
[2016-12-18] MEDS: MEROPENEM 1 GM in IV NORMAL SALINE 100ML 100 ML IV SCH (21:00)
[2016-12-18] MEDS: LISINOPRIL 10 MG TABLET PO SCH (21:00)
[2016-12-18] MEDS: ATORVASTATIN CALCIUM 40 MG TABLET. PO SCH (21:24)
[2016-12-19 03:00] VITALS: BP 93/55
[2016-12-19 05:00] LABS: CALCIUM 9.5 mg/dL (8.5-10.1); CREATININE 1.8 mg/dL (0.6-1.0); GFR 36.3; POTASSIUM 5.6 mmol/L (3.5-5.1)
[2016-12-19 07:00] VITALS: BP 128/63
[2016-12-19] MEDS: IPRATRPIUM/ALBUTEROL 0.5/2.5MG 3 ML NEBU. NEB SCH ×3 (07:22→19:42)
[2016-12-19] MEDS: BUDESONIDE 0.5 MG/2 ML NEBU. NEB SCH ×2 (07:25→19:42)
[2016-12-19] MEDS: metFORMIN 500 MG TABLET PO SCH ×2 (08:24→17:01)
[2016-12-19] MEDS: LINEZOLID 600 MG TABLET PO SCH ×2 (08:24→21:19)
[2016-12-19] MEDS: HYDROcodone/APAP 7.5/325MG 1 TAB TABLET PO PRN ×3 (08:25→21:21)
[2016-12-19] MEDS: hydroCHLOROthiazide 12.5 MG CAPSULE PO SCH ×2 (08:25→21:19)
[2016-12-19] MEDS: LISINOPRIL 10 MG TABLET PO SCH (08:26)
--- NOTE | 2016-12-19 08:29 | PDOC ---
Infectious Disease Note Subjective Subjective Doing ok. min pain Has a cough. On Clear liquids but unsure why ROS ROS GEN: Denies fevers, chills, sweats HEENT: Denies blurred vision, sore throat CV: Denies chest pain RESP: Denies shortness of air, cough GI: Denies n/v/d NEURO: Denies confusion, dizziness MSK: Denies weakness, joint pain/swelling Vital Sign Vital Signs Vital Signs Date Time Temp Pulse Resp B/P (MAP) Pulse Ox O2 Delivery O2 Flow Rate FiO2 12/19/16 07:26 98 Room Air 12/19/16 03:00 97.9 82 18 93/55 (68) 97.9 Physical Exam PHYSICAL EXAM GENERAL: NAD, Alert, in chair. looks a little tired HEENT: PERRL, OC/OP- clear NECK: Supple, no JVD, no LN LUNGS: Clear HEART: S1S2, no gallop, no murmur ABD: Soft, NT, no organomegaly, no rebound, obese Vac in place but beeping EXT: No edema, no cyanosis HEALTHCARE LIAISON: Alert, oriented x 3, no focal neurologic deficit SKIN: No rash IV: ok Labs Lab Laboratory Tests Test 12/18/16 11:38 12/18/16 16:25 12/18/16 20:40 12/19/16 03:42 Glucose (Fingerstick) 88 mg/dL (70-99) 183 mg/dL (70-99) 199 mg/dL (70-99) Sodium Level 135 mmol/L (136-145) Potassium Level 5.6 mmol/L (3.5-5.1) Chloride Level 103 mmol/L (98-107) Carbon Dioxide Level 22 mmol/L (21-32) Anion Gap 10 (6-14) Blood Urea Nitrogen 46 mg/dL (7-20) Creatinine 1.8 mg/dL (0.6-1.0) Estimated GFR (Cockcroft-Gault) 36.3 Glucose Level 155 mg/dL (70-99) Calcium Level 9.5 mg/dL (8.5-10.1) Test 12/19/16 07:17 Glucose (Fingerstick) 173 mg/dL (70-99) Objective Assessment A little fatigued today and mild cough but had both Pneumo vax and Influenza vaccine yesterday Right perirectal abscess - s/p I and D 12/17 - vac in place ? zosyn reaction - itch but has tolerated augmentin GRICEL - ? Bactrim +/- Dm. better DM Plan Plan of Care Cont Meropenem/zyvox F/u cultures - d/w micro this am. May know bacteria this afternoon but sensitivities available tomorrow F/u labs Checking into ? clear liquid status - d/w nursing BELEN CHRISTIAN MD Dec 19, 2016 08:29
[2016-12-19] MEDS: INSULIN ASPART 300 UNITS/3 ML INSULN.PEN SQ SCH ×7 (08:31→21:28)
[2016-12-19] MEDS: INSULIN DEGLUDEC 100 UNIT SQ SCH (08:32)
[2016-12-19] MEDS: MEROPENEM 1 GM in IV NORMAL SALINE 100ML 100 ML IV SCH (08:33)
--- NOTE | 2016-12-19 09:27 | PDOC ---
[facility] [employer] MA[employer]GER 12/19/16 0927: SURGICAL PROGRESS NOTE Subjective tolerating diet pain managed asking about length of vac time Vital Signs Vital Signs Date Time Temp Pulse Resp B/P (MAP) Pulse Ox O2 Delivery O2 Flow Rate FiO2 12/19/16 08:26 89 128/63 12/19/16 08:25 98 Room Air 12/19/16 07:00 98.6 18 98.6 General: Alert, Oriented X3, Cooperative, No acute distress Abdomen: Soft Skin: Other (vac in place) Labs Laboratory Tests Test 12/17/16 11:35 12/17/16 14:52 12/17/16 16:45 12/17/16 21:02 Glucose (Fingerstick) 188 mg/dL (70-99) 208 mg/dL (70-99) 258 mg/dL (70-99) 290 mg/dL (70-99) Test 12/18/16 04:50 12/18/16 07:11 12/18/16 11:38 12/18/16 16:25 Prothrombin Time 15.5 SEC (11.7-14.0) Prothromb Time International Ratio 1.3 (0.8-1.1) Sodium Level 135 mmol/L (136-145) Potassium Level 5.6 mmol/L (3.5-5.1) Chloride Level 102 mmol/L (98-107) Carbon Dioxide Level 22 mmol/L (21-32) Anion Gap 11 (6-14) Blood Urea Nitrogen 46 mg/dL (7-20) Creatinine 1.9 mg/dL (0.6-1.0) Estimated GFR (Cockcroft-Gault) 34.1 Glucose Level 144 mg/dL (70-99) Calcium Level 9.5 mg/dL (8.5-10.1) Glucose (Fingerstick) 137 mg/dL (70-99) 88 mg/dL (70-99) 183 mg/dL (70-99) Test 12/18/16 20:40 12/19/16 03:42 12/19/16 07:17 Glucose (Fingerstick) 199 mg/dL (70-99) 173 mg/dL (70-99) Sodium Level 135 mmol/L (136-145) Potassium Level 5.6 mmol/L (3.5-5.1) Chloride Level 103 mmol/L (98-107) Carbon Dioxide Level 22 mmol/L (21-32) Anion Gap 10 (6-14) Blood Urea Nitrogen 46 mg/dL (7-20) Creatinine 1.8 mg/dL (0.6-1.0) Estimated GFR (Cockcroft-Gault) 36.3 Glucose Level 155 mg/dL (70-99) Calcium Level 9.5 mg/dL (8.5-10.1) Laboratory Tests Test 12/18/16 11:38 12/18/16 16:25 12/18/16 20:40 12/19/16 03:42 Glucose (Fingerstick) 88 mg/dL (70-99) 183 mg/dL (70-99) 199 mg/dL (70-99) Sodium Level 135 mmol/L (136-145) Potassium Level 5.6 mmol/L (3.5-5.1) Chloride Level 103 mmol/L (98-107) Carbon Dioxide Level 22 mmol/L (21-32) Anion Gap 10 (6-14) Blood Urea Nitrogen 46 mg/dL (7-20) Creatinine 1.8 mg/dL (0.6-1.0) Estimated GFR (Cockcroft-Gault) 36.3 Glucose Level 155 mg/dL (70-99) Calcium Level 9.5 mg/dL (8.5-10.1) Test 12/19/16 07:17 Glucose (Fingerstick) 173 mg/dL (70-99) Assessment/Plan s/p debridement of perirectal abscess wound vac in place continue current care Problems: CONSUELO ROUSE MD 12/19/16 1102: SURGICAL PROGRESS NOTE Assessment/Plan pt seen up to side of bed adequate pain control continue wound care 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
[2016-12-19 11:00] VITALS: BP 99/52
[2016-12-19 15:00] VITALS: BP 117/51
--- NOTE | 2016-12-19 17:47 | PDOC ---
PROGRESS NOTES Subjective Subjective Patient continues to improve. Office cultures are negative for pathogen only skin for were grown. Yeast was also seen on office culture. Patient had been on Bactrim DS for 1 week prior to culture. Patient does complain of constipation with no BM for the last 4 days. Complaining of cough since surgery. Patient showing evidence of increase potassium on labs today. Social work obtaining outpatient wound VAC and setting up outpatient wound care. Objective Objective Vital Signs Date Time Temp Pulse Resp B/P (MAP) Pulse Ox O2 Delivery O2 Flow Rate FiO2 12/19/16 15:55 98 Room Air 2.0 12/19/16 15:00 97.6 93 18 117/51 (73) 97.6 Intake and Output 12/20/16 07:00 Intake Total 240 ml Balance 240 ml Intake Oral 240 ml Physical Exam Abdomen: Normal bowel sounds Heart: Regular rate Extremities: No edema General: Alert Lungs: Clear to auscultation Assessment Assessment Sepsis resolving Perirectal abscess status post incision and drainage and debridement. Postop day 1 Acute renal failure resolving Type 2 diabetes, out of control. Hypertension. High cholesterol. Moderate persistent asthma. Morbid obesity. Obstructive sleep apnea. Anxiety, depression. Plan Plan of Care Switch to by mouth antibiotics when appropriate per infectious disease recommendations Discharge to home with wound VAC in a.m. if outpatient wound VAC and wound care follow-up arranged. Continue manage chronic medical issues. Switch to valsartan due to cough and hyperkalemia on lisinopril. Comment Review of Relevant I have reviewed the following items nir (where applicable) has been applied. Labs Laboratory Tests Test 12/17/16 21:02 12/18/16 04:50 12/18/16 07:11 12/18/16 11:38 Glucose (Fingerstick) 290 mg/dL (70-99) 137 mg/dL (70-99) 88 mg/dL (70-99) Prothrombin Time 15.5 SEC (11.7-14.0) Prothromb Time International Ratio 1.3 (0.8-1.1) Sodium Level 135 mmol/L (136-145) Potassium Level 5.6 mmol/L (3.5-5.1) Chloride Level 102 mmol/L (98-107) Carbon Dioxide Level 22 mmol/L (21-32) Anion Gap 11 (6-14) Blood Urea Nitrogen 46 mg/dL (7-20) Creatinine 1.9 mg/dL (0.6-1.0) Estimated GFR (Cockcroft-Gault) 34.1 Glucose Level 144 mg/dL (70-99) Calcium Level 9.5 mg/dL (8.5-10.1) Test 12/18/16 16:25 12/18/16 20:40 12/19/16 03:42 12/19/16 07:17 Glucose (Fingerstick) 183 mg/dL (70-99) 199 mg/dL (70-99) 173 mg/dL (70-99) Sodium Level 135 mmol/L (136-145) Potassium Level 5.6 mmol/L (3.5-5.1) Chloride Level 103 mmol/L (98-107) Carbon Dioxide Level 22 mmol/L (21-32) Anion Gap 10 (6-14) Blood Urea Nitrogen 46 mg/dL (7-20) Creatinine 1.8 mg/dL (0.6-1.0) Estimated GFR (Cockcroft-Gault) 36.3 Glucose Level 155 mg/dL (70-99) Calcium Level 9.5 mg/dL (8.5-10.1) Test 12/19/16 11:49 12/19/16 16:49 Glucose (Fingerstick) 159 mg/dL (70-99) 129 mg/dL (70-99) Laboratory Tests Test 12/18/16 20:40 12/19/16 03:42 12/19/16 07:17 12/19/16 11:49 Glucose (Fingerstick) 199 mg/dL (70-99) 173 mg/dL (70-99) 159 mg/dL (70-99) Sodium Level 135 mmol/L (136-145) Potassium Level 5.6 mmol/L (3.5-5.1) Chloride Level 103 mmol/L (98-107) Carbon Dioxide Level 22 mmol/L (21-32) Anion Gap 10 (6-14) Blood Urea Nitrogen 46 mg/dL (7-20) Creatinine 1.8 mg/dL (0.6-1.0) Estimated GFR (Cockcroft-Gault) 36.3 Glucose Level 155 mg/dL (70-99) Calcium Level 9.5 mg/dL (8.5-10.1) Test 12/19/16 16:49 Glucose (Fingerstick) 129 mg/dL (70-99) Microbiology 12/17/16 Gram Stain - Final, Complete Medications Current Medications Sodium Chloride 1,000 ml @ 100 mls/hr Q10H IV Last administered on 12/16/16 13:48; Start 12/16/16 at 13:27; Stop 12/16/16 at 23:26; Status DC Enoxaparin Sodium (Lovenox 40mg Syringe) 40 mg Q24H SQ Last administered on 15:11; Start 12/16/16 at 14:00; Stop 12/17/16 at 13:32; Status DC Piperacillin Sod/ Tazobactam Sod 3.375 gm/Sodium Chloride 50 ml @ 100 mls/hr Q6HRS IV ; Start 12/16/16 at 20:00; Stop 12/16/16 at 20:11; Status DC Vancomycin HCl (Vanco Per Pharmacy) 1 each PRN DAILY PRN MC SEE COMMENTS Last administered on 12/16/16 16:19; Start 12/16/16 at 13:30; Stop 12/17/16 at 08:48 ; Status DC Insulin Aspart (NovoLOG) 30 units TIDWMEALS SQ Last administered on 12/18/16 08:37; Start 12/16/16 at 17:00; Stop 12/18/16 at 12:56; Status DC Albuterol/ Ipratropium (Duoneb) 3 ml RTQID NEB Last administered on 12/19/16 11:26; Start 12/16/16 at 16:00 Metformin HCl (Glucophage) 500 mg BIDWMEALS PO Last administered on 12/19/16 17:01; Start 12/16/16 at 17:00 Albuterol Sulfate (Ventolin Neb Soln) 2.5 mg PRN Q6HRS PRN NEB SHORTNESS OF BREATH Last administered on 12/19/16 15:15; Start 12/16/16 at 13:45 Non-Formulary Medication 100 units DAILY SQ ; Start 12/17/16 at 09:00; Status UNV Lisinopril (Prinivil) 20 mg BID PO Last administered on 12/17/16 21:12; Start 12/16/16 at 21:00; Stop 12/18/16 at 12:56; Status DC Budesonide (Pulmicort) 0.5 mg RTBID NEB Last administered on 12/19/16 07:25; Start 12/16/16 at 20:00 Atorvastatin Calcium (Lipitor) 80 mg QHS PO Last administered on 12/18/16 21: 24; Start 12/16/16 at 21:00 Insulin Aspart (NovoLOG) 0-12 UNITS QIDACHS SQ Last administered on 12/19/16 12:45; Start 12/16/16 at 16:30 Hydrochlorothiazide (Hydrodiuril) 25 mg BID PO Last administered on 12/17/16 21:11; Start 12/16/16 at 21:00; Stop 12/18/16 at 12:56; Status DC Vancomycin HCl 2 gm/Sodium Chloride 500 ml @ 250 mls/hr 1X ONCE IV Last administered on 12/16/16 15:12; Start 12/16/16 at 15:00; Stop 12/16/16 at 16:59 ; Status DC Piperacillin Sod/ Tazobactam Sod 3.375 gm/Sodium Chloride 50 ml @ 100 mls/hr 1X ONCE IV Last administered on 12/16/16 14:10; Start 12/16/16 at 14:00; Stop 12/16/16 at 20:11; Status DC Diphenhydramine HCl (Benadryl) 50 mg 1X ONCE IVP Last administered on 15:08; Start 12/16/16 at 15:00; Stop 12/16/16 at 15:01; Status DC Acetaminophen/ Hydrocodone Bitart (Lortab 7.5/325) 1 tab PRN Q6HRS PRN PO PAIN Last administered on 12/19/16 14:51; Start 12/16/16 at 15:00 Acetaminophen (Tylenol) 650 mg PRN Q6HRS PRN PO MILD PAIN; Start 12/16/16 at 15 :00 Vancomycin HCl 2 gm/Sodium Chloride 500 ml @ 250 mls/hr Q24H IV ; Start at 15:00; Stop 12/17/16 at 15:00; Status DC Vancomycin HCl 1 each 1X ONCE MC ; Start 12/16/16 at 16:30; Stop 12/16/16 at 16 :31; Status Cancel Vancomycin HCl 1 each 1X ONCE MC ; Start 12/18/16 at 14:30; Stop 12/18/16 at 14 :31; Status Cancel Pneumococcal Polyvalent Vaccine (Do NOT chart on this placeholder) 1 each PRN 1X PRN MC SEE COMMENTS; Start 12/16/16 at 17:00; Status UNV Info (Do NOT chart on this placeholder) 1 each PRN 1X PRN MC SEE COMMENTS; Start 12/16/16 at 17:00; Status UNV Influenza Virus Vaccine Quadrival (Fluarix Quad [id number] Syringe) 0.5 ml ONCE ONCE VAX IM Last administered on 12/18/16 18:38; Start 12/16/16 at 18:00; Stop 12/16/16 at 18:04; Status DC Pneumococcal Polyvalent Vaccine (Pneumovax 23) 0.5 ml ONCE ONCE VAX IM Last administered on 12/18/16 18:39; Start 12/16/16 at 18:00; Stop 12/16/16 at 18:04 ; Status DC Diphenhydramine HCl (Benadryl) 25 mg PRN Q6HRS PRN PO ITCHING Last administered on 12/16/16 20:30; Start 12/16/16 at 20:15 Meropenem 500 mg/ Sodium Chloride 50 ml @ 100 mls/hr Q8HRS IV Last administered on 12/18/16 06:13; Start 12/16/16 at 22:00; Stop 12/18/16 at 08:53 ; Status DC Linezolid (Zyvox) 600 mg BID PO Last administered on 12/19/16 08:24; Start at 09:00 Ondansetron HCl (Zofran) 4 mg PRN Q6HRS PRN IV NAUSEA/VOMITING; Start 12/17/16 at 11:00; Stop 12/17/16 at 18:00; Status DC Morphine Sulfate 1 mg PRN Q10MIN PRN IV SEVERE PAIN; Start 12/17/16 at 11:00; Stop 12/17/16 at 18:00; Status DC Ringer's Solution 1,000 ml @ 30 mls/hr Q24H IV Last administered on 12/17/16 10:46; Start 12/17/16 at 10:46; Stop 12/17/16 at 22:45; Status DC Lidocaine HCl (Xylocaine-Mpf 1% Vial) 2 ml 1X PRN PRN ID IV START; Start at 11:00; Stop 12/17/16 at 11:00; Status DC Hydromorphone HCl (Dilaudid) 0.5 mg PRN Q10MIN PRN IV SEV PAIN, Second choice Last administered on 12/17/16t 15:44; Start 12/17/16 at 11:00; Stop 12/17/16 at 18:00; Status DC Prochlorperazine Edisylate (Compazine) 5 mg PACU PRN PRN IV NAUSEA, MRX1; Start 12/17/16 at 11:00; Stop 12/17/16 at 18:00; Status DC Fentanyl Citrate (Fentanyl 2ml Vial) 100 mcg STK-MED ONCE .ROUTE ; Start at 12:20; Stop 12/17/16 at 12:21; Status DC Midazolam HCl (Versed) 2 mg STK-MED ONCE .ROUTE ; Start 12/17/16 at 12:21; Stop 12/17/16 at 12:22; Status DC Propofol 20 ml @ As Directed STK-MED ONCE IV ; Start 12/17/16 at 12:21; Stop at 12:22; Status DC Dexamethasone Sodium Phosphate (Decadron) 20 mg STK-MED ONCE .ROUTE ; Start 12/17/16 at 12:22; Stop 12/17/16 at 12:23; Status DC Ondansetron HCl (Zofran) 4 mg STK-MED ONCE .ROUTE ; Start 12/17/16 at 12:23; Stop 12/17/16 at 12:24; Status DC Succinylcholine Chloride (Anectine) 200 mg STK-MED ONCE .ROUTE ; Start 12/17/16 at 12:23; Stop 12/17/16 at 12:24; Status DC Ketamine HCl 500 mg STK-MED ONCE .ROUTE ; Start 12/17/16 at 12:39; Stop at 12:40; Status DC Famotidine (Pepcid) 20 mg STK-MED ONCE .ROUTE ; Start 12/17/16 at 12:39; Stop 12/17/16 at 12:40; Status DC Enoxaparin Sodium (Lovenox 60mg Syringe) 60 mg Q12H SQ Last administered on 14:47; Start 12/17/16 at 14:00 Propofol 20 ml @ As Directed STK-MED ONCE IV ; Start 12/17/16 at 13:38; Stop at 13:39; Status DC Propofol 20 ml @ As Directed STK-MED ONCE IV ; Start 12/17/16 at 13:38; Stop at 13:39; Status DC Phenylephrine HCl 1 mg STK-MED ONCE IV ; Start 12/17/16 at 13:59; Stop 12/17/16 at 14:00; Status DC Propofol 20 ml @ As Directed STK-MED ONCE IV ; Start 12/17/16 at 14:18; Stop at 14:19; Status DC Desflurane (Suprane) 60 ml STK-MED ONCE IH ; Start 12/17/16 at 14:21; Stop 12/17 at 14:22; Status DC Insulin Aspart (NovoLOG VIAL) 100 unit STK-MED ONCE SQ ; Start 12/17/16 at 15:05 ; Stop 12/17/16 at 15:06; Status DC Insulin Aspart (NovoLOG VIAL) 4 unit 1X ONCE SQ Last administered on 15:11; Start 12/17/16 at 15:15; Stop 12/17/16 at 15:16; Status DC Meropenem 1 gm/ Sodium Chloride 100 ml @ 200 mls/hr Q12HR IV Last administered on 12/19/16 08:33; Start 12/18/16 at 21:00 Meropenem 500 mg/ Sodium Chloride 50 ml @ 100 mls/hr 1X ONCE IV Last administered on 12/18/16 09:59; Start 12/18/16 at 10:00; Stop 12/18/16 at 10:29 ; Status DC Insulin Aspart (NovoLOG) 20 units TIDWMEALS SQ Last administered on 12/19/16 17:03; Start 12/18/16 at 17:00 Lisinopril (Prinivil) 10 mg BID PO Last administered on 12/19/16 08:26; Start 12/18/16 at 21:00 Hydrochlorothiazide (Microzide) 12.5 mg BID PO Last administered on 10/5/17at 08:25; Start 12/18/16 at 21:00 Insulin Detemir (Levemir) 50 units BID SQ ; Start 12/19/16 at 21:00; Status UNV Active Scripts Active Bactrim Ds Tablet (Sulfamethoxazole/Trimethoprim) 1 Each Tablet 1 Tab PO BID Reported Dulera 200 Mcg/5 Mcg Inhaler (Mometasone/Formoterol) 13 Gm Hfa.aer.ad 2 Puff IH BID Proair Hfa Inhaler (Albuterol Sulfate) 8.5 Gm Hfa.aer.ad 1 Puff INH PRN Q6HRS PRN Duoneb 0.5-3(2.5) Mg/3 Ml (Albuterol/Ipratropium) 3 Ml Ampul.neb 3 Ml NEB QID Metformin Hcl 500 Mg Tablet 500 Mg PO BID Lisinopril-Hctz 20-25 Mg Tab (Lisinopril/Hydrochlorothiazide) 1 Each Tablet 1 Tab PO BID Tresiba Flextouch U-100 (Insulin Degludec) 100 Unit/1 Ml Insuln.pen 100 Units SQ DAILY Rosuvastatin Calcium 20 Mg Tablet 20 Mg PO HS Novolog Flexpen (Insulin Aspart) 100 Unit/1 Ml Insuln.pen 30 Units SQ TIDWMEALS Farxiga (Dapagliflozin Propanediol) 10 Mg Tablet 10 Mg PO DAILY Vitals/I & O Vital Sign - Last 24 Hours 12/18/16 12/18/16 12/18/16 12/18/16 19:00 19:07 19:10 20:25 Temp 98.3 98.3 Pulse 134 Resp 20 B/P (MAP) 98/38 (58) Pulse Ox 97 99 99 O2 Delivery Room Air Room Air Room Air Room Air 12/18/16 12/18/16 12/18/16 12/18/16 20:35 21:00 21:35 23:00 Temp 98.4 98.4 Pulse 134 93 Resp 20 20 18 B/P (MAP) 98/38 100/45 (63) Pulse Ox 97 O2 Delivery Room Air Room Air 12/19/16 12/19/16 12/19/16 12/19/16 03:00 07:00 07:24 07:26 Temp 97.9 98.6 97.9 98.6 Pulse 82 89 Resp 18 18 B/P (MAP) 93/55 (68) 128/63 (84) Pulse Ox 98 98 98 98 O2 Delivery Room Air Room Air Room Air Room Air 12/19/16 12/19/16 12/19/16 12/19/16 07:40 08:25 08:26 11:00 Temp 96.1 96.1 Pulse 89 54 Resp 18 B/P (MAP) 128/63 99/52 (68) Pulse Ox 98 96 O2 Delivery Room Air Room Air Room Air 12/19/16 12/19/16 12/19/16 12/19/16 11:26 14:51 15:00 15:16 Temp 97.6 97.6 Pulse 93 Resp 18 B/P (MAP) 117/51 (73) Pulse Ox 98 98 100 98 O2 Delivery Room Air Room Air Room Air Room Air 12/19/16 15:55 Pulse Ox 98 O2 Delivery Room Air O2 Flow Rate 2.0 Intake and Output 12/19/16 12/19/16 12/20/16 15:00 23:00 07:00 Intake Total 240 ml Balance 240 ml MALU HERRING MD Dec 19, 2016 17:47
[2016-12-19] MEDS ORDERED: BISACODYL 5 MG TABLET.DR. PO ONE (18:00)
[2016-12-19 19:00] VITALS: BP 106/61
[2016-12-19] MEDS: AMOXICILLIN/K CLAV 875/125MG TABLET. PO SCH (21:18)
[2016-12-19] MEDS: ATORVASTATIN CALCIUM 40 MG TABLET. PO SCH (21:18)
[2016-12-19] MEDS: INSULIN DETEMIR 300 UNITS/3 ML INSULN.PEN. SQ SCH (21:27)
[2016-12-19 23:00] VITALS: BP 106/60
[2016-12-20 03:00] VITALS: BP 98/56
[2016-12-20] MEDS: HYDROcodone/APAP 7.5/325MG 1 TAB TABLET PO PRN ×2 (04:27→14:13)
[2016-12-20 06:15] LABS: CALCIUM 9.7 mg/dL (8.5-10.1); CREATININE 1.4 mg/dL (0.6-1.0); GFR 48.6
[2016-12-20 07:00] VITALS: BP 119/66
[2016-12-20] MEDS: IPRATRPIUM/ALBUTEROL 0.5/2.5MG 3 ML NEBU. NEB SCH ×3 (07:18→15:09)
[2016-12-20] MEDS: BUDESONIDE 0.5 MG/2 ML NEBU. NEB SCH (07:19)
[2016-12-20] MEDS ORDERED: SODIUM POLYSTYRENE SULFONATE 15 GM/60 ML ORAL.SUSP. PO ONE (08:00)
--- NOTE | 2016-12-20 08:26 | PDOC ---
Infectious Disease Note Subjective Subjective Doing ok. a little frustrated Tolerating diet. Pain ok ROS ROS GEN: Denies fevers, chills, sweats HEENT: Denies blurred vision, sore throat CV: Denies chest pain RESP: Denies shortness of air, cough GI: Denies n/v/d NEURO: Denies confusion, dizziness MSK: Denies weakness, joint pain/swelling Vital Sign Vital Signs Vital Signs Date Time Temp Pulse Resp B/P (MAP) Pulse Ox O2 Delivery O2 Flow Rate FiO2 12/20/16 07:21 98 Room Air 12/20/16 05:53 18 12/20/16 03:00 97.5 84 98/56 (70) 97.5 12/19/16 15:55 2.0 Physical Exam PHYSICAL EXAM GENERAL: NAD, Alert, in chair HEENT: PERRL, OC/OP- clear NECK: Supple, no JVD, no LN LUNGS: Clear HEART: S1S2, no gallop, no murmur ABD: Soft, NT, no organomegaly, no rebound, obese Vac in place EXT: No edema, no cyanosis 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, oriented x 3, no focal neurologic deficit SKIN: No rash IV: ok Labs Lab Laboratory Tests Test 12/19/16 11:49 12/19/16 16:49 12/19/16 21:00 12/20/16 04:00 Glucose (Fingerstick) 159 mg/dL (70-99) 129 mg/dL (70-99) 173 mg/dL (70-99) Sodium Level 136 mmol/L (136-145) Potassium Level 6.0 mmol/L (3.5-5.1) Chloride Level 104 mmol/L (98-107) Carbon Dioxide Level 22 mmol/L (21-32) Anion Gap 10 (6-14) Blood Urea Nitrogen 39 mg/dL (7-20) Creatinine 1.4 mg/dL (0.6-1.0) Estimated GFR (Cockcroft-Gault) 48.6 Glucose Level 169 mg/dL (70-99) Calcium Level 9.7 mg/dL (8.5-10.1) Objective Assessment Right perirectal abscess - s/p I and D 12/17 - vac in place. ? Strep viridans and a rare GNR - d/w micro this am ? zosyn reaction - itch but is tolerating augmentin GRICEL - ? Bactrim +/- Dm. better DM Plan Plan of Care Lost IV access last pm and did not want a new one placed. Meropenem d/c'd last pm and Augmentin started and she is tolerating well Discont zyvox this am Can Augmentin for 7 days - should be ok to d/c home when ready from other service standpoint with close f/u next week to f/u BELEN Flores MD Dec 20, 2016 08:26
[2016-12-20] MEDS: metFORMIN 500 MG TABLET PO SCH (08:42)
[2016-12-20] MEDS: AMOXICILLIN/K CLAV 875/125MG TABLET. PO SCH (08:42)
[2016-12-20] MEDS: hydroCHLOROthiazide 12.5 MG CAPSULE PO SCH (08:42)
[2016-12-20] MEDS: INSULIN DEGLUDEC 100 UNIT SQ SCH (08:43)
[2016-12-20] MEDS: INSULIN ASPART 300 UNITS/3 ML INSULN.PEN SQ SCH ×6 (08:57→13:03)
[2016-12-20] MEDS: INSULIN DETEMIR 300 UNITS/3 ML INSULN.PEN. SQ SCH (08:58)
[2016-12-20] MEDS ORDERED: POLYETHYLENE GLYCOL 3350 17 GM PACKET. PO SCH (09:00)
[2016-12-20] MEDS ORDERED: LOSARTAN POTASSIUM 50 MG TABLET. PO SCH (09:00)
--- NOTE | 2016-12-20 09:02 | PDOC ---
SURGICAL PROGRESS NOTE Subjective up to chair no new c/o Vital Signs Vital Signs Date Time Temp Pulse Resp B/P (MAP) Pulse Ox O2 Delivery O2 Flow Rate FiO2 12/20/16 08:43 88 119/66 12/20/16 07:21 98 Room Air 12/20/16 07:00 98.0 18 98.0 12/19/16 15:55 2.0 PATIENT HAS A SNEED: No General: Alert, No acute distress Skin: Other (vac on) Labs Laboratory Tests Test 12/18/16 11:38 12/18/16 16:25 12/18/16 20:40 12/19/16 03:42 Glucose (Fingerstick) 88 mg/dL (70-99) 183 mg/dL (70-99) 199 mg/dL (70-99) Sodium Level 135 mmol/L (136-145) Potassium Level 5.6 mmol/L (3.5-5.1) Chloride Level 103 mmol/L (98-107) Carbon Dioxide Level 22 mmol/L (21-32) Anion Gap 10 (6-14) Blood Urea Nitrogen 46 mg/dL (7-20) Creatinine 1.8 mg/dL (0.6-1.0) Estimated GFR (Cockcroft-Gault) 36.3 Glucose Level 155 mg/dL (70-99) Calcium Level 9.5 mg/dL (8.5-10.1) Test 12/19/16 07:17 12/19/16 11:49 12/19/16 16:49 12/19/16 21:00 Glucose (Fingerstick) 173 mg/dL (70-99) 159 mg/dL (70-99) 129 mg/dL (70-99) 173 mg/dL (70-99) Test 12/20/16 04:00 12/20/16 08:24 Sodium Level 136 mmol/L (136-145) Potassium Level 6.0 mmol/L (3.5-5.1) Chloride Level 104 mmol/L (98-107) Carbon Dioxide Level 22 mmol/L (21-32) Anion Gap 10 (6-14) Blood Urea Nitrogen 39 mg/dL (7-20) Creatinine 1.4 mg/dL (0.6-1.0) Estimated GFR (Cockcroft-Gault) 48.6 Glucose Level 169 mg/dL (70-99) Calcium Level 9.7 mg/dL (8.5-10.1) Glucose (Fingerstick) 160 mg/dL (70-99) Laboratory Tests Test 12/19/16 11:49 12/19/16 16:49 12/19/16 21:00 12/20/16 04:00 Glucose (Fingerstick) 159 mg/dL (70-99) 129 mg/dL (70-99) 173 mg/dL (70-99) Sodium Level 136 mmol/L (136-145) Potassium Level 6.0 mmol/L (3.5-5.1) Chloride Level 104 mmol/L (98-107) Carbon Dioxide Level 22 mmol/L (21-32) Anion Gap 10 (6-14) Blood Urea Nitrogen 39 mg/dL (7-20) Creatinine 1.4 mg/dL (0.6-1.0) Estimated GFR (Cockcroft-Gault) 48.6 Glucose Level 169 mg/dL (70-99) Calcium Level 9.7 mg/dL (8.5-10.1) Test 12/20/16 08:24 Glucose (Fingerstick) 160 mg/dL (70-99) Assessment/Plan s/p debridement no new recs Dr Basurto available over the weekend if needed Problems: CONSUELO ROUSE MD Dec 20, 2016 09:02
[2016-12-20 11:00] VITALS: BP 131/67
[2016-12-20] MEDS ORDERED: INSU100I17 SQ (12:51)
[2016-12-20] MEDS ORDERED: AMLO5TAB4 PO (12:51)
[2016-12-20] MEDS ORDERED: AMOX1TAB11 PO (12:51)
[2016-12-20] MEDS ORDERED: POLY17PO3 PO (12:51)
[2016-12-20] MEDS ORDERED: INSU100I30 SQ (12:51)
[2016-12-20] MEDS ORDERED: HYDR12.53 PO (12:54)
--- NOTE | 2016-12-20 13:24 | DS ---
DATE OF DISCHARGE: 12/20/2016 ADMITTING DIAGNOSIS: Suspected sepsis. DISMISSAL DIAGNOSES: 1. Perirectal abscess. 2. Acute on chronic renal failure. 3. Type 2 diabetes, out of control. 4. Hypertension. 5. Morbid obesity. 6. Moderate persistent asthma. 7. High cholesterol. 8. Obstructive sleep apnea. 9. Anxiety and depression. HISTORY OF PRESENT ILLNESS AND HOSPITAL COURSE: This patient is a 46-year-old -[place] female who went to the Emergency Room due to painful area on her buttocks and was found to have an abscess which spontaneously drained. She was placed on p.o. antibiotics, but failed to improve significantly, returned to the office with episodes of nausea, vomiting, chills and continued drainage from perirectal wound. Due to the severity of illness and low blood pressure, the patient was admitted to the hospital with suspected sepsis and failed outpatient treatment of abscess and cellulitis to the perirectal area. She underwent fluid hydration and IV antibiotics as well as surgical and infectious disease consultation. The patient was taken to surgery for debridement and disruption of loculated abscess. The patient was placed on a wound VAC during hospital stay. The patient had IV antibiotics, broad spectrum, during hospital stay and culture returned from the office showing no growth after initial antibiotic treatment; therefore, she was switched back to p.o. antibiotics. The patient was back to baseline, but required assistance in wound care. Therefore, she will be discharged with referral to the wound care clinic for continued wound VAC treatment and routine dressing changes. The patient did develop hyperkalemia during late hospitalization, possibly due to MANUELA inhibitor and ARB. Therefore, the patient was discontinued on these medications and medications were adjusted. DISCHARGE MEDICATIONS: As follows: Amlodipine 5 mg daily for blood pressure, Augmentin 875 one p.o. b.i.d. for 10 days, hydrochlorothiazide 12.5 mg b.i.d., MiraLax 17 grams in water daily, albuterol sulfate metered dose inhaler q.6 hours p.r.n. shortness of breath, Farxiga 10 mg daily for diabetes, DuoNeb nebulizer treatments q.6 hours, metformin 500 mg b.i.d., Dulera 200/5 two puffs b.i.d., Crestor 20 mg daily, insulin NovoLog 20 units with meals, down from 30. Insulin Tresiba FlexTouch pen 50 units subq at bedtime, down from 100. Medications discontinued on this hospital stay were lisinopril HCTZ combination and Bactrim-DS. The patient will follow up in family practice clinic in 1-2 weeks and then wound care clinic in 2-3 days. MALU HERRING MD DR: NORIS/alysa JOB#: [id number] / [id number]
== END 2016-12-20 17:25 | disposition home or self-care (01) | DRG 854 ==
LOC: 4 NORTH 11:45
PROVIDERS: ADMIT Family Medicine; ATTEND Family Medicine
PROC: 0JB90ZZ Excision of Buttock Subcutaneous Tissue and Fascia, Open Approach (ICD-10-PCS; principal; 2016-12-17 13:15)
DX: A41.9 Sepsis, unspecified organism (principal); K61.1 Rectal abscess; N17.9 Acute kidney failure, unspecified; E11.22 Type 2 diabetes mellitus with diabetic chronic kidney disease; E11.65 Type 2 diabetes mellitus with hyperglycemia; L02.31 Cutaneous abscess of buttock; Z68.44 Body mass index [BMI] 60.0-69.9, adult; N18.9 Chronic kidney disease, unspecified; I12.9 Hypertensive chronic kidney disease with stage 1 through stage 4 chronic kidney disease, or unspecified chronic kidney disease; E66.01 Morbid (severe) obesity due to excess calories; J45.40 Moderate persistent asthma, uncomplicated; E78.00 Pure hypercholesterolemia, unspecified; G47.33 Obstructive sleep apnea (adult) (pediatric); F32.9 Major depressive disorder, single episode, unspecified; F41.1 Generalized anxiety disorder; D86.9 Sarcoidosis, unspecified; E87.5 Hyperkalemia; T37.0X5A Adverse effect of sulfonamides, initial encounter; K59.00 Constipation, unspecified; Z23 Encounter for immunization; Z79.899 Other long term (current) drug therapy; Z82.49 Family history of ischemic heart disease and other diseases of the circulatory system; Z83.3 Family history of diabetes mellitus
CPT/HCPCS: 36415; 76881; 80048; 80053; 82962; 85025; 85610; 87071; 87075; 87205; 90686; 90732; 94250; 94640; 94760; J0330; J1100; J1170; J1200; J1650; J1815; J2185; J2250; J2370; J2405; J2543; J2704; J3010; J3370; J3490; J7030; J7040; J7120; J7613; J7620; J7626; Q0163; S0028

== ENCOUNTER → 2016-12-23 | Outpatient (CLI) | payer OTHER ==
[2016-12-20 11:00] VITALS: BP 131/67
[~2016-12-23] MED LIST changes: +AMLO5TAB4 PO; +AMOX1TAB11 PO; +DAPA10TA PO; +HYDR12.53 PO; +INSU100I17 SQ; +INSU100I30 SQ; +IPRA3AMP NEB; +LISI1TAB7 PO; +METF500T4 PO; +MOME13HF IH; +POLY17PO3 PO; +PROAIR HFA8.5 GM INH; +ROSU20TA27 PO
== END | disposition home or self-care (01) ==
LOC: PMGWOUND 08:53
PROVIDERS: ATTEND Emergency Medicine Undersea and Hyperbaric Medicine
DX: T81.31XA Disruption of external operation (surgical) wound, not elsewhere classified, initial encounter (principal); E11.22 Type 2 diabetes mellitus with diabetic chronic kidney disease; I12.9 Hypertensive chronic kidney disease with stage 1 through stage 4 chronic kidney disease, or unspecified chronic kidney disease; N18.9 Chronic kidney disease, unspecified; F41.9 Anxiety disorder, unspecified; F32.9 Major depressive disorder, single episode, unspecified; J45.909 Unspecified asthma, uncomplicated; E78.00 Pure hypercholesterolemia, unspecified; E78.5 Hyperlipidemia, unspecified; Y83.8 Other surgical procedures as the cause of abnormal reaction of the patient, or of later complication, without mention of misadventure at the time of the procedure
CPT/HCPCS: 99213

== ENCOUNTER → 2016-12-25 | Outpatient (CLI) | payer OTHER ==
[2016-12-20 11:00] VITALS: BP 131/67
== END | disposition home or self-care (01) ==
LOC: PMGWOUND 08:04
PROVIDERS: ATTEND Emergency Medicine Undersea and Hyperbaric Medicine
DX: T81.31XD Disruption of external operation (surgical) wound, not elsewhere classified, subsequent encounter (principal); E11.22 Type 2 diabetes mellitus with diabetic chronic kidney disease; I12.9 Hypertensive chronic kidney disease with stage 1 through stage 4 chronic kidney disease, or unspecified chronic kidney disease; N18.9 Chronic kidney disease, unspecified; F41.9 Anxiety disorder, unspecified; E78.5 Hyperlipidemia, unspecified; F32.9 Major depressive disorder, single episode, unspecified; E78.00 Pure hypercholesterolemia, unspecified; J45.909 Unspecified asthma, uncomplicated; E66.01 Morbid (severe) obesity due to excess calories; Z68.44 Body mass index [BMI] 60.0-69.9, adult; Y83.8 Other surgical procedures as the cause of abnormal reaction of the patient, or of later complication, without mention of misadventure at the time of the procedure
CPT/HCPCS: 99213

== ENCOUNTER → 2016-12-30 | Outpatient (CLI) | payer OTHER ==
[2016-12-20 11:00] VITALS: BP 131/67
== END | disposition home or self-care (01) ==
LOC: PMGWOUND 08:05
PROVIDERS: ATTEND Emergency Medicine Undersea and Hyperbaric Medicine
DX: T81.31XD Disruption of external operation (surgical) wound, not elsewhere classified, subsequent encounter (principal); E11.22 Type 2 diabetes mellitus with diabetic chronic kidney disease; I12.9 Hypertensive chronic kidney disease with stage 1 through stage 4 chronic kidney disease, or unspecified chronic kidney disease; N18.9 Chronic kidney disease, unspecified; E78.5 Hyperlipidemia, unspecified; E78.00 Pure hypercholesterolemia, unspecified; J45.909 Unspecified asthma, uncomplicated; Y83.8 Other surgical procedures as the cause of abnormal reaction of the patient, or of later complication, without mention of misadventure at the time of the procedure
CPT/HCPCS: 97606

== ENCOUNTER → 2017-01-01 | Outpatient (CLI) | payer OTHER ==
[2016-12-20 11:00] VITALS: BP 131/67
== END | disposition home or self-care (01) ==
LOC: PMGWOUND 11:59
PROVIDERS: ATTEND Emergency Medicine Undersea and Hyperbaric Medicine
DX: T81.31XD Disruption of external operation (surgical) wound, not elsewhere classified, subsequent encounter (principal); E78.5 Hyperlipidemia, unspecified; I12.9 Hypertensive chronic kidney disease with stage 1 through stage 4 chronic kidney disease, or unspecified chronic kidney disease; N18.9 Chronic kidney disease, unspecified; F32.9 Major depressive disorder, single episode, unspecified; E66.01 Morbid (severe) obesity due to excess calories; F41.1 Generalized anxiety disorder; J45.40 Moderate persistent asthma, uncomplicated; E11.9 Type 2 diabetes mellitus without complications; Y83.8 Other surgical procedures as the cause of abnormal reaction of the patient, or of later complication, without mention of misadventure at the time of the procedure; Z68.44 Body mass index [BMI] 60.0-69.9, adult
CPT/HCPCS: 97606

== ENCOUNTER → 2017-01-03 | Outpatient (CLI) | payer OTHER ==
[2016-12-20 11:00] VITALS: BP 131/67
== END | disposition home or self-care (01) ==
LOC: PMGWOUND 08:00
PROVIDERS: ATTEND Emergency Medicine Undersea and Hyperbaric Medicine
DX: T81.31XD Disruption of external operation (surgical) wound, not elsewhere classified, subsequent encounter (principal); F41.1 Generalized anxiety disorder; E78.5 Hyperlipidemia, unspecified; F32.9 Major depressive disorder, single episode, unspecified; E66.01 Morbid (severe) obesity due to excess calories; E11.22 Type 2 diabetes mellitus with diabetic chronic kidney disease; I12.9 Hypertensive chronic kidney disease with stage 1 through stage 4 chronic kidney disease, or unspecified chronic kidney disease; N18.9 Chronic kidney disease, unspecified; J45.40 Moderate persistent asthma, uncomplicated; Z68.44 Body mass index [BMI] 60.0-69.9, adult; Y83.8 Other surgical procedures as the cause of abnormal reaction of the patient, or of later complication, without mention of misadventure at the time of the procedure
CPT/HCPCS: 97605

== ENCOUNTER → 2017-01-06 | Outpatient (CLI) | payer OTHER ==
[2016-12-20 11:00] VITALS: BP 131/67
== END | disposition home or self-care (01) ==
LOC: PMGWOUND 07:59
PROVIDERS: ATTEND Emergency Medicine Undersea and Hyperbaric Medicine
DX: T81.31XD Disruption of external operation (surgical) wound, not elsewhere classified, subsequent encounter (principal); F41.1 Generalized anxiety disorder; E78.5 Hyperlipidemia, unspecified; E11.22 Type 2 diabetes mellitus with diabetic chronic kidney disease; I12.9 Hypertensive chronic kidney disease with stage 1 through stage 4 chronic kidney disease, or unspecified chronic kidney disease; N18.9 Chronic kidney disease, unspecified; F32.9 Major depressive disorder, single episode, unspecified; J45.40 Moderate persistent asthma, uncomplicated; E66.01 Morbid (severe) obesity due to excess calories; Z68.44 Body mass index [BMI] 60.0-69.9, adult; Y83.8 Other surgical procedures as the cause of abnormal reaction of the patient, or of later complication, without mention of misadventure at the time of the procedure
CPT/HCPCS: 97605

== ENCOUNTER → 2017-01-08 | Outpatient (CLI) | payer OTHER ==
[2016-12-20 11:00] VITALS: BP 131/67
== END | disposition home or self-care (01) ==
LOC: PMGWOUND 07:59
PROVIDERS: ATTEND Preventive Medicine Undersea and Hyperbaric Medicine
DX: T81.31XD Disruption of external operation (surgical) wound, not elsewhere classified, subsequent encounter (principal); F41.1 Generalized anxiety disorder; E78.5 Hyperlipidemia, unspecified; F32.9 Major depressive disorder, single episode, unspecified; E11.22 Type 2 diabetes mellitus with diabetic chronic kidney disease; I12.9 Hypertensive chronic kidney disease with stage 1 through stage 4 chronic kidney disease, or unspecified chronic kidney disease; N18.9 Chronic kidney disease, unspecified; E66.01 Morbid (severe) obesity due to excess calories; J45.40 Moderate persistent asthma, uncomplicated; Z68.44 Body mass index [BMI] 60.0-69.9, adult; Y83.8 Other surgical procedures as the cause of abnormal reaction of the patient, or of later complication, without mention of misadventure at the time of the procedure
CPT/HCPCS: 97605

== ENCOUNTER → 2017-01-10 | Outpatient (CLI) | payer OTHER ==
[2016-12-20 11:00] VITALS: BP 131/67
== END | disposition home or self-care (01) ==
LOC: PMGWOUND 07:59
PROVIDERS: ATTEND Preventive Medicine Undersea and Hyperbaric Medicine
DX: T81.31XD Disruption of external operation (surgical) wound, not elsewhere classified, subsequent encounter (principal); F41.1 Generalized anxiety disorder; E78.5 Hyperlipidemia, unspecified; F32.9 Major depressive disorder, single episode, unspecified; E11.22 Type 2 diabetes mellitus with diabetic chronic kidney disease; I12.9 Hypertensive chronic kidney disease with stage 1 through stage 4 chronic kidney disease, or unspecified chronic kidney disease; N18.9 Chronic kidney disease, unspecified; J45.40 Moderate persistent asthma, uncomplicated; E66.01 Morbid (severe) obesity due to excess calories; Z68.44 Body mass index [BMI] 60.0-69.9, adult; Z79.4 Long term (current) use of insulin; Y83.8 Other surgical procedures as the cause of abnormal reaction of the patient, or of later complication, without mention of misadventure at the time of the procedure
CPT/HCPCS: 97605

== ENCOUNTER → 2017-01-27 | Outpatient (CLI) | payer OTHER | END | disposition home or self-care (01) | LOC: PMGWOUND 08:05 | PROVIDERS: ATTEND Emergency Medicine Undersea and Hyperbaric Medicine | DX: T81.31XD Disruption of external operation (surgical) wound, not elsewhere classified, subsequent encounter (principal); E66.01 Morbid (severe) obesity due to excess calories; Z68.44 Body mass index [BMI] 60.0-69.9, adult; J45.909 Unspecified asthma, uncomplicated; E78.00 Pure hypercholesterolemia, unspecified; F41.9 Anxiety disorder, unspecified; F32.9 Major depressive disorder, single episode, unspecified; E78.5 Hyperlipidemia, unspecified; E11.22 Type 2 diabetes mellitus with diabetic chronic kidney disease; I12.9 Hypertensive chronic kidney disease with stage 1 through stage 4 chronic kidney disease, or unspecified chronic kidney disease; N18.9 Chronic kidney disease, unspecified; Y83.8 Other surgical procedures as the cause of abnormal reaction of the patient, or of later complication, without mention of misadventure at the time of the procedure | CPT/HCPCS: 97597; 99214 ==

== ENCOUNTER → 2017-01-29 | Outpatient (CLI) | payer OTHER | END | disposition home or self-care (01) | LOC: PMGWOUND 08:11 | PROVIDERS: ATTEND Preventive Medicine Undersea and Hyperbaric Medicine | DX: T81.31XD Disruption of external operation (surgical) wound, not elsewhere classified, subsequent encounter (principal); E11.9 Type 2 diabetes mellitus without complications; J45.909 Unspecified asthma, uncomplicated; E66.01 Morbid (severe) obesity due to excess calories; E78.00 Pure hypercholesterolemia, unspecified; F41.9 Anxiety disorder, unspecified; F32.9 Major depressive disorder, single episode, unspecified; I10 Essential (primary) hypertension; Y83.8 Other surgical procedures as the cause of abnormal reaction of the patient, or of later complication, without mention of misadventure at the time of the procedure | CPT/HCPCS: 99213 ==

== ENCOUNTER → 2017-01-31 | Outpatient (CLI) | payer OTHER | END | disposition home or self-care (01) | LOC: PMGWOUND 08:08 | PROVIDERS: ATTEND Preventive Medicine Undersea and Hyperbaric Medicine | DX: T81.31XD Disruption of external operation (surgical) wound, not elsewhere classified, subsequent encounter (principal); E66.01 Morbid (severe) obesity due to excess calories; Z68.44 Body mass index [BMI] 60.0-69.9, adult; J45.909 Unspecified asthma, uncomplicated; E78.00 Pure hypercholesterolemia, unspecified; F41.9 Anxiety disorder, unspecified; F32.9 Major depressive disorder, single episode, unspecified; E11.22 Type 2 diabetes mellitus with diabetic chronic kidney disease; I12.9 Hypertensive chronic kidney disease with stage 1 through stage 4 chronic kidney disease, or unspecified chronic kidney disease; N18.9 Chronic kidney disease, unspecified; Z79.4 Long term (current) use of insulin; E78.5 Hyperlipidemia, unspecified; Y83.8 Other surgical procedures as the cause of abnormal reaction of the patient, or of later complication, without mention of misadventure at the time of the procedure | CPT/HCPCS: 99213 ==

== ENCOUNTER → 2017-02-03 | Outpatient (CLI) | payer OTHER | END | disposition home or self-care (01) | LOC: PMGWOUND 08:00 | PROVIDERS: ATTEND Emergency Medicine Undersea and Hyperbaric Medicine | DX: T81.31XD Disruption of external operation (surgical) wound, not elsewhere classified, subsequent encounter (principal); E11.22 Type 2 diabetes mellitus with diabetic chronic kidney disease; I12.9 Hypertensive chronic kidney disease with stage 1 through stage 4 chronic kidney disease, or unspecified chronic kidney disease; N18.9 Chronic kidney disease, unspecified; F41.9 Anxiety disorder, unspecified; F32.9 Major depressive disorder, single episode, unspecified; E66.01 Morbid (severe) obesity due to excess calories; Z68.44 Body mass index [BMI] 60.0-69.9, adult; Z79.4 Long term (current) use of insulin; E78.00 Pure hypercholesterolemia, unspecified; J45.909 Unspecified asthma, uncomplicated; E78.5 Hyperlipidemia, unspecified; Y83.8 Other surgical procedures as the cause of abnormal reaction of the patient, or of later complication, without mention of misadventure at the time of the procedure | CPT/HCPCS: 99214 ==

== ENCOUNTER → 2017-02-05 | Outpatient (CLI) | payer OTHER | END | disposition home or self-care (01) | LOC: PMGWOUND 08:00 | PROVIDERS: ATTEND Preventive Medicine Undersea and Hyperbaric Medicine | DX: T81.31XD Disruption of external operation (surgical) wound, not elsewhere classified, subsequent encounter (principal); E78.5 Hyperlipidemia, unspecified; E11.22 Type 2 diabetes mellitus with diabetic chronic kidney disease; I12.9 Hypertensive chronic kidney disease with stage 1 through stage 4 chronic kidney disease, or unspecified chronic kidney disease; N18.9 Chronic kidney disease, unspecified; F32.9 Major depressive disorder, single episode, unspecified; E66.01 Morbid (severe) obesity due to excess calories; F41.1 Generalized anxiety disorder; J45.40 Moderate persistent asthma, uncomplicated; Z79.4 Long term (current) use of insulin; Y83.8 Other surgical procedures as the cause of abnormal reaction of the patient, or of later complication, without mention of misadventure at the time of the procedure | CPT/HCPCS: 99213 ==

== ENCOUNTER → 2017-02-10 | Outpatient (CLI) | payer OTHER | END | disposition home or self-care (01) | LOC: PMGWOUND 11:55 | PROVIDERS: ATTEND Emergency Medicine Undersea and Hyperbaric Medicine | DX: T81.31XD Disruption of external operation (surgical) wound, not elsewhere classified, subsequent encounter (principal); E66.01 Morbid (severe) obesity due to excess calories; Z68.44 Body mass index [BMI] 60.0-69.9, adult; J45.909 Unspecified asthma, uncomplicated; E78.00 Pure hypercholesterolemia, unspecified; F41.9 Anxiety disorder, unspecified; F32.9 Major depressive disorder, single episode, unspecified; E78.5 Hyperlipidemia, unspecified; E11.22 Type 2 diabetes mellitus with diabetic chronic kidney disease; I12.9 Hypertensive chronic kidney disease with stage 1 through stage 4 chronic kidney disease, or unspecified chronic kidney disease; N18.9 Chronic kidney disease, unspecified; Z79.4 Long term (current) use of insulin; Y83.8 Other surgical procedures as the cause of abnormal reaction of the patient, or of later complication, without mention of misadventure at the time of the procedure | CPT/HCPCS: 99214 ==

== ENCOUNTER → 2017-02-17 | Outpatient (CLI) | payer OTHER | END | disposition home or self-care (01) | LOC: PMGWOUND 08:29 | PROVIDERS: ATTEND Emergency Medicine Undersea and Hyperbaric Medicine | DX: T81.30XD Disruption of wound, unspecified, subsequent encounter (principal); E11.22 Type 2 diabetes mellitus with diabetic chronic kidney disease; I12.9 Hypertensive chronic kidney disease with stage 1 through stage 4 chronic kidney disease, or unspecified chronic kidney disease; N18.9 Chronic kidney disease, unspecified; N17.9 Acute kidney failure, unspecified; F41.9 Anxiety disorder, unspecified; F32.9 Major depressive disorder, single episode, unspecified; E78.00 Pure hypercholesterolemia, unspecified; J45.909 Unspecified asthma, uncomplicated; E66.01 Morbid (severe) obesity due to excess calories; Z68.44 Body mass index [BMI] 60.0-69.9, adult; Z90.89 Acquired absence of other organs; Z79.4 Long term (current) use of insulin; Y83.8 Other surgical procedures as the cause of abnormal reaction of the patient, or of later complication, without mention of misadventure at the time of the procedure | CPT/HCPCS: 99214 ==

== ENCOUNTER 2017-05-24 11:23 | Emergency (ER) | payer OTHER | END 2017-05-24 12:34 | disposition home or self-care (01) | LOC: ER 11:23 | DX: L03.116 Cellulitis of left lower limb (principal); J45.909 Unspecified asthma, uncomplicated; E78.00 Pure hypercholesterolemia, unspecified; I10 Essential (primary) hypertension; E11.9 Type 2 diabetes mellitus without complications; Z88.1 Allergy status to other antibiotic agents; Z88.8 Allergy status to other drugs, medicaments and biological substances | CPT/HCPCS: 99283 ==

== ENCOUNTER → 2017-09-18 | Outpatient (CLI) | payer OTHER | END | disposition home or self-care (01) | LOC: PMGWOUND 13:00 | DX: T81.31XD Disruption of external operation (surgical) wound, not elsewhere classified, subsequent encounter (principal); E11.22 Type 2 diabetes mellitus with diabetic chronic kidney disease; I12.9 Hypertensive chronic kidney disease with stage 1 through stage 4 chronic kidney disease, or unspecified chronic kidney disease; N18.9 Chronic kidney disease, unspecified; N17.9 Acute kidney failure, unspecified; F32.9 Major depressive disorder, single episode, unspecified; F41.9 Anxiety disorder, unspecified; G47.33 Obstructive sleep apnea (adult) (pediatric); E78.00 Pure hypercholesterolemia, unspecified; E66.01 Morbid (severe) obesity due to excess calories; J45.909 Unspecified asthma, uncomplicated; E11.65 Type 2 diabetes mellitus with hyperglycemia; Z68.43 Body mass index [BMI] 50.0-59.9, adult; Y83.8 Other surgical procedures as the cause of abnormal reaction of the patient, or of later complication, without mention of misadventure at the time of the procedure | CPT/HCPCS: 99213 ==

== ENCOUNTER → 2017-09-24 | Outpatient (CLI) | payer OTHER | END | disposition home or self-care (01) | LOC: PMGWOUND 09:16 | DX: T81.31XD Disruption of external operation (surgical) wound, not elsewhere classified, subsequent encounter (principal); F41.9 Anxiety disorder, unspecified; F32.9 Major depressive disorder, single episode, unspecified; E66.01 Morbid (severe) obesity due to excess calories; E78.00 Pure hypercholesterolemia, unspecified; E11.22 Type 2 diabetes mellitus with diabetic chronic kidney disease; I12.9 Hypertensive chronic kidney disease with stage 1 through stage 4 chronic kidney disease, or unspecified chronic kidney disease; N18.9 Chronic kidney disease, unspecified; G47.33 Obstructive sleep apnea (adult) (pediatric); J45.40 Moderate persistent asthma, uncomplicated; Z79.4 Long term (current) use of insulin; Z68.43 Body mass index [BMI] 50.0-59.9, adult; Y83.8 Other surgical procedures as the cause of abnormal reaction of the patient, or of later complication, without mention of misadventure at the time of the procedure | CPT/HCPCS: 97605 ==

== ENCOUNTER → 2017-09-26 | Outpatient (CLI) | payer OTHER | END | disposition home or self-care (01) | LOC: PMGWOUND 11:45 | DX: T81.31XD Disruption of external operation (surgical) wound, not elsewhere classified, subsequent encounter (principal); L02.31 Cutaneous abscess of buttock; F41.9 Anxiety disorder, unspecified; F32.9 Major depressive disorder, single episode, unspecified; E66.01 Morbid (severe) obesity due to excess calories; J45.40 Moderate persistent asthma, uncomplicated; G47.33 Obstructive sleep apnea (adult) (pediatric); E78.00 Pure hypercholesterolemia, unspecified; J45.909 Unspecified asthma, uncomplicated; E11.22 Type 2 diabetes mellitus with diabetic chronic kidney disease; I12.9 Hypertensive chronic kidney disease with stage 1 through stage 4 chronic kidney disease, or unspecified chronic kidney disease; N18.9 Chronic kidney disease, unspecified; Z79.4 Long term (current) use of insulin; Z68.43 Body mass index [BMI] 50.0-59.9, adult; Y83.8 Other surgical procedures as the cause of abnormal reaction of the patient, or of later complication, without mention of misadventure at the time of the procedure | CPT/HCPCS: 97605 ==

== ENCOUNTER → 2017-09-29 | Outpatient (CLI) | payer OTHER | END | disposition home or self-care (01) | LOC: PMGWOUND 12:03 | DX: T81.31XD Disruption of external operation (surgical) wound, not elsewhere classified, subsequent encounter (principal); F41.9 Anxiety disorder, unspecified; F32.9 Major depressive disorder, single episode, unspecified; J45.40 Moderate persistent asthma, uncomplicated; E66.01 Morbid (severe) obesity due to excess calories; G47.33 Obstructive sleep apnea (adult) (pediatric); E78.00 Pure hypercholesterolemia, unspecified; E11.22 Type 2 diabetes mellitus with diabetic chronic kidney disease; I13.0 Hypertensive heart and chronic kidney disease with heart failure and stage 1 through stage 4 chronic kidney disease, or unspecified chronic kidney disease; N18.9 Chronic kidney disease, unspecified; I50.9 Heart failure, unspecified; Z68.43 Body mass index [BMI] 50.0-59.9, adult; Z79.4 Long term (current) use of insulin; X58.XXXD Exposure to other specified factors, subsequent encounter | CPT/HCPCS: 97605 ==

== ENCOUNTER → 2017-10-01 | Outpatient (CLI) | payer OTHER | END | disposition home or self-care (01) | LOC: PMGWOUND 11:45 | DX: T81.31XD Disruption of external operation (surgical) wound, not elsewhere classified, subsequent encounter (principal); F41.9 Anxiety disorder, unspecified; E11.22 Type 2 diabetes mellitus with diabetic chronic kidney disease; I13.0 Hypertensive heart and chronic kidney disease with heart failure and stage 1 through stage 4 chronic kidney disease, or unspecified chronic kidney disease; N18.9 Chronic kidney disease, unspecified; I50.9 Heart failure, unspecified; F32.9 Major depressive disorder, single episode, unspecified; J45.40 Moderate persistent asthma, uncomplicated; E66.01 Morbid (severe) obesity due to excess calories; G47.33 Obstructive sleep apnea (adult) (pediatric); E78.00 Pure hypercholesterolemia, unspecified; Z68.43 Body mass index [BMI] 50.0-59.9, adult; Z79.4 Long term (current) use of insulin; Y83.8 Other surgical procedures as the cause of abnormal reaction of the patient, or of later complication, without mention of misadventure at the time of the procedure | CPT/HCPCS: 97605 ==

== ENCOUNTER → 2017-10-03 | Outpatient (CLI) | payer OTHER | END | disposition home or self-care (01) | LOC: PMGWOUND 11:43 | DX: T81.31XD Disruption of external operation (surgical) wound, not elsewhere classified, subsequent encounter (principal); F41.9 Anxiety disorder, unspecified; E11.22 Type 2 diabetes mellitus with diabetic chronic kidney disease; I13.0 Hypertensive heart and chronic kidney disease with heart failure and stage 1 through stage 4 chronic kidney disease, or unspecified chronic kidney disease; N18.9 Chronic kidney disease, unspecified; I50.9 Heart failure, unspecified; F32.9 Major depressive disorder, single episode, unspecified; J45.40 Moderate persistent asthma, uncomplicated; E66.01 Morbid (severe) obesity due to excess calories; G47.33 Obstructive sleep apnea (adult) (pediatric); E78.00 Pure hypercholesterolemia, unspecified; Z79.4 Long term (current) use of insulin; Z68.43 Body mass index [BMI] 50.0-59.9, adult; Y83.8 Other surgical procedures as the cause of abnormal reaction of the patient, or of later complication, without mention of misadventure at the time of the procedure | CPT/HCPCS: 97605 ==

== ENCOUNTER → 2017-10-06 | Outpatient (CLI) | payer OTHER | END | disposition home or self-care (01) | LOC: PMGWOUND 08:32 | DX: T81.31XD Disruption of external operation (surgical) wound, not elsewhere classified, subsequent encounter (principal); E11.22 Type 2 diabetes mellitus with diabetic chronic kidney disease; I13.0 Hypertensive heart and chronic kidney disease with heart failure and stage 1 through stage 4 chronic kidney disease, or unspecified chronic kidney disease; N18.9 Chronic kidney disease, unspecified; I50.9 Heart failure, unspecified; F41.9 Anxiety disorder, unspecified; F32.9 Major depressive disorder, single episode, unspecified; J45.40 Moderate persistent asthma, uncomplicated; E66.01 Morbid (severe) obesity due to excess calories; G47.33 Obstructive sleep apnea (adult) (pediatric); J45.909 Unspecified asthma, uncomplicated; E78.00 Pure hypercholesterolemia, unspecified; Z79.4 Long term (current) use of insulin; Z68.43 Body mass index [BMI] 50.0-59.9, adult; Y83.8 Other surgical procedures as the cause of abnormal reaction of the patient, or of later complication, without mention of misadventure at the time of the procedure | CPT/HCPCS: 97605 ==

== ENCOUNTER → 2017-10-08 | Outpatient (CLI) | payer OTHER | END | disposition home or self-care (01) | LOC: PMGWOUND 09:01 | DX: T81.31XD Disruption of external operation (surgical) wound, not elsewhere classified, subsequent encounter (principal); E11.22 Type 2 diabetes mellitus with diabetic chronic kidney disease; I13.0 Hypertensive heart and chronic kidney disease with heart failure and stage 1 through stage 4 chronic kidney disease, or unspecified chronic kidney disease; N18.9 Chronic kidney disease, unspecified; I50.9 Heart failure, unspecified; F41.9 Anxiety disorder, unspecified; F32.9 Major depressive disorder, single episode, unspecified; J45.40 Moderate persistent asthma, uncomplicated; E66.01 Morbid (severe) obesity due to excess calories; G47.33 Obstructive sleep apnea (adult) (pediatric); J45.909 Unspecified asthma, uncomplicated; E78.00 Pure hypercholesterolemia, unspecified; Z79.4 Long term (current) use of insulin; Z68.43 Body mass index [BMI] 50.0-59.9, adult; Y83.8 Other surgical procedures as the cause of abnormal reaction of the patient, or of later complication, without mention of misadventure at the time of the procedure | CPT/HCPCS: 97605 ==

== ENCOUNTER → 2017-10-10 | Outpatient (CLI) | payer OTHER | END | disposition home or self-care (01) | LOC: PMGWOUND 11:37 | DX: T81.31XD Disruption of external operation (surgical) wound, not elsewhere classified, subsequent encounter (principal); E11.22 Type 2 diabetes mellitus with diabetic chronic kidney disease; I13.0 Hypertensive heart and chronic kidney disease with heart failure and stage 1 through stage 4 chronic kidney disease, or unspecified chronic kidney disease; N18.9 Chronic kidney disease, unspecified; I50.9 Heart failure, unspecified; F41.9 Anxiety disorder, unspecified; F32.9 Major depressive disorder, single episode, unspecified; J45.40 Moderate persistent asthma, uncomplicated; E66.01 Morbid (severe) obesity due to excess calories; G47.33 Obstructive sleep apnea (adult) (pediatric); J45.909 Unspecified asthma, uncomplicated; E78.00 Pure hypercholesterolemia, unspecified; Z79.4 Long term (current) use of insulin; Z68.43 Body mass index [BMI] 50.0-59.9, adult; Y83.8 Other surgical procedures as the cause of abnormal reaction of the patient, or of later complication, without mention of misadventure at the time of the procedure | CPT/HCPCS: 97605 ==

== ENCOUNTER → 2017-10-13 | Outpatient (CLI) | payer OTHER | END | disposition home or self-care (01) | LOC: PMGWOUND 11:00 | DX: T81.31XD Disruption of external operation (surgical) wound, not elsewhere classified, subsequent encounter (principal); E11.22 Type 2 diabetes mellitus with diabetic chronic kidney disease; I13.0 Hypertensive heart and chronic kidney disease with heart failure and stage 1 through stage 4 chronic kidney disease, or unspecified chronic kidney disease; N18.9 Chronic kidney disease, unspecified; I50.9 Heart failure, unspecified; F41.9 Anxiety disorder, unspecified; F32.9 Major depressive disorder, single episode, unspecified; J45.40 Moderate persistent asthma, uncomplicated; E66.01 Morbid (severe) obesity due to excess calories; G47.33 Obstructive sleep apnea (adult) (pediatric); J45.909 Unspecified asthma, uncomplicated; E78.00 Pure hypercholesterolemia, unspecified; Z79.4 Long term (current) use of insulin; Z68.43 Body mass index [BMI] 50.0-59.9, adult; Y83.8 Other surgical procedures as the cause of abnormal reaction of the patient, or of later complication, without mention of misadventure at the time of the procedure | CPT/HCPCS: 97605 ==

== ENCOUNTER → 2017-10-15 | Outpatient (CLI) | payer OTHER | END | disposition home or self-care (01) | LOC: PMGWOUND 11:35 | DX: T81.31XD Disruption of external operation (surgical) wound, not elsewhere classified, subsequent encounter (principal); E11.22 Type 2 diabetes mellitus with diabetic chronic kidney disease; I13.0 Hypertensive heart and chronic kidney disease with heart failure and stage 1 through stage 4 chronic kidney disease, or unspecified chronic kidney disease; N18.9 Chronic kidney disease, unspecified; I50.9 Heart failure, unspecified; F41.9 Anxiety disorder, unspecified; F32.9 Major depressive disorder, single episode, unspecified; J45.40 Moderate persistent asthma, uncomplicated; E66.01 Morbid (severe) obesity due to excess calories; G47.33 Obstructive sleep apnea (adult) (pediatric); J45.909 Unspecified asthma, uncomplicated; E78.00 Pure hypercholesterolemia, unspecified; Z79.4 Long term (current) use of insulin; Z68.43 Body mass index [BMI] 50.0-59.9, adult; Y83.8 Other surgical procedures as the cause of abnormal reaction of the patient, or of later complication, without mention of misadventure at the time of the procedure | CPT/HCPCS: 97605 ==

== ENCOUNTER → 2017-10-17 | Outpatient (CLI) | payer OTHER | END | disposition home or self-care (01) | LOC: PMGWOUND 11:30 | DX: T81.31XD Disruption of external operation (surgical) wound, not elsewhere classified, subsequent encounter (principal); E11.22 Type 2 diabetes mellitus with diabetic chronic kidney disease; I13.0 Hypertensive heart and chronic kidney disease with heart failure and stage 1 through stage 4 chronic kidney disease, or unspecified chronic kidney disease; N18.9 Chronic kidney disease, unspecified; I50.9 Heart failure, unspecified; F41.9 Anxiety disorder, unspecified; F32.9 Major depressive disorder, single episode, unspecified; J45.40 Moderate persistent asthma, uncomplicated; E66.01 Morbid (severe) obesity due to excess calories; G47.33 Obstructive sleep apnea (adult) (pediatric); J45.909 Unspecified asthma, uncomplicated; E78.00 Pure hypercholesterolemia, unspecified; Z79.4 Long term (current) use of insulin; Z68.43 Body mass index [BMI] 50.0-59.9, adult; Y83.8 Other surgical procedures as the cause of abnormal reaction of the patient, or of later complication, without mention of misadventure at the time of the procedure | CPT/HCPCS: 97605 ==

== ENCOUNTER → 2017-10-20 | Outpatient (CLI) | payer OTHER | END | disposition home or self-care (01) | LOC: PMGWOUND 11:47 | DX: T81.31XD Disruption of external operation (surgical) wound, not elsewhere classified, subsequent encounter (principal); E11.22 Type 2 diabetes mellitus with diabetic chronic kidney disease; I13.0 Hypertensive heart and chronic kidney disease with heart failure and stage 1 through stage 4 chronic kidney disease, or unspecified chronic kidney disease; N18.9 Chronic kidney disease, unspecified; I50.9 Heart failure, unspecified; F41.9 Anxiety disorder, unspecified; F32.9 Major depressive disorder, single episode, unspecified; J45.40 Moderate persistent asthma, uncomplicated; E66.01 Morbid (severe) obesity due to excess calories; G47.33 Obstructive sleep apnea (adult) (pediatric); J45.909 Unspecified asthma, uncomplicated; E78.00 Pure hypercholesterolemia, unspecified; Z79.4 Long term (current) use of insulin; Z68.43 Body mass index [BMI] 50.0-59.9, adult; Y83.8 Other surgical procedures as the cause of abnormal reaction of the patient, or of later complication, without mention of misadventure at the time of the procedure | CPT/HCPCS: 97605 ==

== ENCOUNTER → 2017-10-22 | Outpatient (CLI) | payer OTHER ==
[2017-09-08 11:00] VITALS: BP 140/70
[~2017-10-22] MED LIST changes: +AMLO10TA2 PO; +AMOX1TAB61 PO; +FLUO40CA9 PO; +HYDR-971 PO; +INSU100C SQ; +INSU100I13 SQ; -IPRA3AMP NEB; +IPRA3AMP29 NEB; -METF500T4 PO; +METF500T5 PO; +MUPI15CR TP; +SULF1TAB23 PO
== END | disposition home or self-care (01) ==
LOC: PMGWOUND 11:26
PROVIDERS: ATTEND Emergency Medicine Undersea and Hyperbaric Medicine
DX: T81.31XD Disruption of external operation (surgical) wound, not elsewhere classified, subsequent encounter (principal); E11.22 Type 2 diabetes mellitus with diabetic chronic kidney disease; I13.0 Hypertensive heart and chronic kidney disease with heart failure and stage 1 through stage 4 chronic kidney disease, or unspecified chronic kidney disease; N18.9 Chronic kidney disease, unspecified; I50.9 Heart failure, unspecified; F41.9 Anxiety disorder, unspecified; F32.9 Major depressive disorder, single episode, unspecified; J45.40 Moderate persistent asthma, uncomplicated; E66.01 Morbid (severe) obesity due to excess calories; G47.33 Obstructive sleep apnea (adult) (pediatric); J45.909 Unspecified asthma, uncomplicated; E78.00 Pure hypercholesterolemia, unspecified; Z79.4 Long term (current) use of insulin; Z68.43 Body mass index [BMI] 50.0-59.9, adult; Y83.8 Other surgical procedures as the cause of abnormal reaction of the patient, or of later complication, without mention of misadventure at the time of the procedure
CPT/HCPCS: 99213

== ENCOUNTER → 2017-10-24 | Outpatient (CLI) | payer OTHER ==
[2017-09-08 11:00] VITALS: BP 140/70
== END | disposition home or self-care (01) ==
LOC: PMGWOUND 11:40
PROVIDERS: ATTEND Preventive Medicine Undersea and Hyperbaric Medicine
DX: T81.31XD Disruption of external operation (surgical) wound, not elsewhere classified, subsequent encounter (principal); E11.22 Type 2 diabetes mellitus with diabetic chronic kidney disease; I13.0 Hypertensive heart and chronic kidney disease with heart failure and stage 1 through stage 4 chronic kidney disease, or unspecified chronic kidney disease; N18.9 Chronic kidney disease, unspecified; I50.9 Heart failure, unspecified; F41.9 Anxiety disorder, unspecified; F32.9 Major depressive disorder, single episode, unspecified; J45.40 Moderate persistent asthma, uncomplicated; E66.01 Morbid (severe) obesity due to excess calories; G47.33 Obstructive sleep apnea (adult) (pediatric); J45.909 Unspecified asthma, uncomplicated; E78.00 Pure hypercholesterolemia, unspecified; Z88.8 Allergy status to other drugs, medicaments and biological substances; Z79.4 Long term (current) use of insulin; Z68.43 Body mass index [BMI] 50.0-59.9, adult; Y83.8 Other surgical procedures as the cause of abnormal reaction of the patient, or of later complication, without mention of misadventure at the time of the procedure
CPT/HCPCS: 99213

== ENCOUNTER → 2017-10-27 | Outpatient (CLI) | payer OTHER ==
[2017-09-08 11:00] VITALS: BP 140/70
== END | disposition home or self-care (01) ==
LOC: PMGWOUND 11:39
PROVIDERS: ATTEND Emergency Medicine Undersea and Hyperbaric Medicine
DX: T81.31XD Disruption of external operation (surgical) wound, not elsewhere classified, subsequent encounter (principal); L02.31 Cutaneous abscess of buttock; I13.0 Hypertensive heart and chronic kidney disease with heart failure and stage 1 through stage 4 chronic kidney disease, or unspecified chronic kidney disease; E11.22 Type 2 diabetes mellitus with diabetic chronic kidney disease; N18.9 Chronic kidney disease, unspecified; I50.9 Heart failure, unspecified; E11.65 Type 2 diabetes mellitus with hyperglycemia; J45.40 Moderate persistent asthma, uncomplicated; E78.00 Pure hypercholesterolemia, unspecified; G47.33 Obstructive sleep apnea (adult) (pediatric); E66.01 Morbid (severe) obesity due to excess calories; F32.9 Major depressive disorder, single episode, unspecified; F41.8 Other specified anxiety disorders; Z68.43 Body mass index [BMI] 50.0-59.9, adult; Z90.89 Acquired absence of other organs; Z79.4 Long term (current) use of insulin; Z88.8 Allergy status to other drugs, medicaments and biological substances; Y83.8 Other surgical procedures as the cause of abnormal reaction of the patient, or of later complication, without mention of misadventure at the time of the procedure
CPT/HCPCS: 99213

== ENCOUNTER → 2017-10-29 | Outpatient (CLI) | payer OTHER ==
[2017-09-08 11:00] VITALS: BP 140/70
== END | disposition home or self-care (01) ==
LOC: PMGWOUND 11:10
PROVIDERS: ATTEND Preventive Medicine Undersea and Hyperbaric Medicine
DX: T81.31XD Disruption of external operation (surgical) wound, not elsewhere classified, subsequent encounter (principal); L02.31 Cutaneous abscess of buttock; I13.0 Hypertensive heart and chronic kidney disease with heart failure and stage 1 through stage 4 chronic kidney disease, or unspecified chronic kidney disease; I50.9 Heart failure, unspecified; E11.22 Type 2 diabetes mellitus with diabetic chronic kidney disease; N18.9 Chronic kidney disease, unspecified; E66.01 Morbid (severe) obesity due to excess calories; E11.65 Type 2 diabetes mellitus with hyperglycemia; E78.00 Pure hypercholesterolemia, unspecified; J45.40 Moderate persistent asthma, uncomplicated; G47.33 Obstructive sleep apnea (adult) (pediatric); F32.9 Major depressive disorder, single episode, unspecified; F41.8 Other specified anxiety disorders; Z68.43 Body mass index [BMI] 50.0-59.9, adult; Z90.89 Acquired absence of other organs; Z79.4 Long term (current) use of insulin; Z88.8 Allergy status to other drugs, medicaments and biological substances; Y83.8 Other surgical procedures as the cause of abnormal reaction of the patient, or of later complication, without mention of misadventure at the time of the procedure
CPT/HCPCS: 99214; G0463

== ENCOUNTER → 2017-11-03 | Outpatient (CLI) | payer OTHER ==
[2017-09-08 11:00] VITALS: BP 140/70
== END | disposition home or self-care (01) ==
LOC: PMGWOUND 11:40
PROVIDERS: ATTEND Emergency Medicine Undersea and Hyperbaric Medicine
DX: T81.31XD Disruption of external operation (surgical) wound, not elsewhere classified, subsequent encounter (principal); L02.31 Cutaneous abscess of buttock; I13.0 Hypertensive heart and chronic kidney disease with heart failure and stage 1 through stage 4 chronic kidney disease, or unspecified chronic kidney disease; E11.22 Type 2 diabetes mellitus with diabetic chronic kidney disease; N18.9 Chronic kidney disease, unspecified; I50.9 Heart failure, unspecified; E11.65 Type 2 diabetes mellitus with hyperglycemia; J45.40 Moderate persistent asthma, uncomplicated; E78.00 Pure hypercholesterolemia, unspecified; E66.01 Morbid (severe) obesity due to excess calories; G47.33 Obstructive sleep apnea (adult) (pediatric); F32.9 Major depressive disorder, single episode, unspecified; F41.8 Other specified anxiety disorders; Z68.43 Body mass index [BMI] 50.0-59.9, adult; Z79.4 Long term (current) use of insulin; Z90.89 Acquired absence of other organs; Z88.8 Allergy status to other drugs, medicaments and biological substances; Y83.8 Other surgical procedures as the cause of abnormal reaction of the patient, or of later complication, without mention of misadventure at the time of the procedure
CPT/HCPCS: 99213

== ENCOUNTER → 2017-11-06 | Outpatient (CLI) | payer OTHER ==
[2017-09-08 11:00] VITALS: BP 140/70
== END | disposition home or self-care (01) ==
LOC: PMGWOUND 08:15
PROVIDERS: ATTEND Emergency Medicine Undersea and Hyperbaric Medicine
DX: T81.31XD Disruption of external operation (surgical) wound, not elsewhere classified, subsequent encounter (principal); I13.0 Hypertensive heart and chronic kidney disease with heart failure and stage 1 through stage 4 chronic kidney disease, or unspecified chronic kidney disease; E11.22 Type 2 diabetes mellitus with diabetic chronic kidney disease; N18.9 Chronic kidney disease, unspecified; I50.9 Heart failure, unspecified; E11.65 Type 2 diabetes mellitus with hyperglycemia; L02.31 Cutaneous abscess of buttock; G47.33 Obstructive sleep apnea (adult) (pediatric); J45.40 Moderate persistent asthma, uncomplicated; E78.00 Pure hypercholesterolemia, unspecified; F41.8 Other specified anxiety disorders; E66.01 Morbid (severe) obesity due to excess calories; Z68.43 Body mass index [BMI] 50.0-59.9, adult; Z90.89 Acquired absence of other organs; Z88.8 Allergy status to other drugs, medicaments and biological substances; Y83.8 Other surgical procedures as the cause of abnormal reaction of the patient, or of later complication, without mention of misadventure at the time of the procedure
CPT/HCPCS: 99214; G0463

== ENCOUNTER → 2017-11-10 | Outpatient (CLI) | payer OTHER ==
[2017-09-08 11:00] VITALS: BP 140/70
== END | disposition home or self-care (01) ==
LOC: PMGWOUND 11:28
PROVIDERS: ATTEND Emergency Medicine Undersea and Hyperbaric Medicine
DX: T81.31XD Disruption of external operation (surgical) wound, not elsewhere classified, subsequent encounter (principal); I13.0 Hypertensive heart and chronic kidney disease with heart failure and stage 1 through stage 4 chronic kidney disease, or unspecified chronic kidney disease; E11.22 Type 2 diabetes mellitus with diabetic chronic kidney disease; N18.9 Chronic kidney disease, unspecified; I50.9 Heart failure, unspecified; J45.40 Moderate persistent asthma, uncomplicated; E11.65 Type 2 diabetes mellitus with hyperglycemia; E66.01 Morbid (severe) obesity due to excess calories; G47.33 Obstructive sleep apnea (adult) (pediatric); E78.00 Pure hypercholesterolemia, unspecified; D86.9 Sarcoidosis, unspecified; F41.9 Anxiety disorder, unspecified; F32.9 Major depressive disorder, single episode, unspecified; Z68.43 Body mass index [BMI] 50.0-59.9, adult; Z90.89 Acquired absence of other organs; Z79.4 Long term (current) use of insulin; Z88.8 Allergy status to other drugs, medicaments and biological substances
CPT/HCPCS: 99212

== ENCOUNTER → 2018-02-17 | Outpatient (CLI) | payer OTHER ==
[2017-09-08 11:00] VITALS: BP 140/70
[~2018-02-17] MED LIST changes: -AMLO10TA2 PO; +AMLO10TA6 PO; +HYDR-3164 PO; -HYDR-971 PO; -HYDR12.53 PO; +HYDR12.575 PO; +METF500T16 PO; -METF500T5 PO; +POLY17PO28 PO; -POLY17PO3 PO
--- NOTE | 2018-02-17 13:24 | RAD ---
DATE: 02/17/2018 EXAM: MAMMO ZACK SCREENING BILATERAL HISTORY: Routine screening COMPARISON: 10/13/2015 This study was interpreted with the benefit of Computerized Aided Detection (CAD). Breast Density: SCATTERED The breast parenchyma shows scattered fibroglandular densities. Breast parenchyma level B. FINDINGS: 2-D and 3-D tomosynthesis imaging was performed in CC and MLO projections. No new or enlarging breast densities are seen. There are scattered benign type calcifications. No suspicious microcalcifications have developed. IMPRESSION: Stable mammograms without evidence of malignancy. BI-RADS CATEGORY: 2 BENIGN FINDING(S) RECOMMENDED FOLLOW-UP: 12M 12 MONTH FOLLOW-UP PQRS compliance statement: Patient information was entered into a reminder system with a target due date for the next mammogram. Mammography is a sensitive method for finding small breast cancers, but it does not detect them all and is not a substitute for careful clinical examination. A negative mammogram does not negate a clinically suspicious finding and should not result in delay in biopsying a clinically suspicious abnormality. "Our facility is accredited by the [employer] Mammography Program."
== END | disposition home or self-care (01) ==
LOC: MAMMO 08:38
PROVIDERS: ATTEND Family Medicine
DX: Z12.31 Encounter for screening mammogram for malignant neoplasm of breast (principal)
CPT/HCPCS: 77063; 77067

== ENCOUNTER → 2019-09-06 | Outpatient (CLI) | payer OTHER ==
[2017-09-08 11:00] VITALS: BP 140/70
[~2019-09-06] MED LIST changes: +ALBU2.5V8 INH; -AMLO10TA6 PO; +AMLO10TA8 PO; +LISI1TAB20 PO; -LISI1TAB7 PO; -PROAIR HFA8.5 GM INH; -ROSU20TA27 PO; +ROSU20TA28 PO
--- NOTE | 2019-09-06 14:21 | CARD ---
MR#: [id number] Date of Study: 09/06/2019 Ordering Physician: MALU HERRING, Referring Physician: MALU HERRING Tech: Melissa Lackey YOLANDA APPROVED REPORT EXAM: Two-dimensional and M-mode echocardiogram with Doppler and color Doppler. Other Information Quality : Fair Technically limited study due to morbid obesity INDICATION Congestive Heart Failure Echo Enhancing Agent Agent/Amount Used: Agitated Saline 16mL 2D DIMENSIONS Left Atrium(2D)3.1 (1.6-4.0cm)IVSd1.0 (0.7-1.1cm) Aortic Root(2D)2.8 (2.0-3.7cm)LVDd4.9 (3.9-5.9cm) LVOT Diameter2.3 (1.8-2.4cm)PWd1.0 (0.7-1.1cm) LVDs2.9 (2.5-4.0cm)FS (%) 41.4 % SV82.8 mlLVEF(%)60.0 (>50%) Aortic Valve AoV Peak Didier.231.9cm/sAoV VTI41.7cm AO Peak GR.21.5mmHgLVOT Peak Didier.169.5cm/s AO Mean GR.10mmHgAVA (VMAX)2.96cm2 LEATHA (VTI)3.00cm2 Mitral Valve MV E Bcuitpta153.0cm/sMV DECEL [id number] MV A Cuaqomju25.0cm/sE/A Ratio1.4 Pulmonary Vein S1 Lkjmfzhs36.5cm/sD2 Xcnswdmi31.5cm/s LEFT VENTRICLE The left ventricle is normal size. There is normal left ventricular wall thickness. The left ventricu lar systolic function is normal. The Ejection Fraction is 55-60%. There is normal LV segmental wall m otion. The left ventricular diastolic function and filling is normal for age. RIGHT VENTRICLE The right ventricle is normal size. The right ventricular systolic function is normal. ATRIA The left atrium size is normal. The right atrium size is normal. The interatrial septum is intact wit h no evidence for an atrial septal defect or patent foramen ovale as noted on 2-D or Doppler imaging. Injection of bubbles documented no interatrial shunt. AORTIC VALVE The aortic valve is not well visualized. Doppler and Color Flow revealed no significant aortic regurg itation. There is no significant aortic valvular stenosis. MITRAL VALVE The mitral valve is normal in structure and function. There is no evidence of mitral valve prolapse. There is no mitral valve stenosis. Doppler and Color Flow revealed no mitral valve regurgitation note d. TRICUSPID VALVE The tricuspid valve is normal in structure and function. Doppler and Color Flow revealed no tricuspid valve regurgitation noted. There is no tricuspid valve stenosis. PULMONIC VALVE The pulmonic valve is not well visualized. GREAT VESSELS The aortic root is normal in size. The ascending aorta is not well seen. The IVC is dilated and colla pses >50% with inspiration. PERICARDIAL EFFUSION There is no evidence of significant pericardial effusion. Critical Notification Critical Value: No <Conclusion> The left ventricular systolic function is normal. The Ejection Fraction is 55-60%. There is normal LV segmental wall motion. There is no evidence of significant pericardial effusion. Injection of bubbles documented no interatrial shunt. Signed by : Karthikeyan Collazo, Electronically Approved : 09/06/2019 14:21:14
== END | disposition home or self-care (01) ==
LOC: ECHO 13:15
PROVIDERS: ATTEND Family Medicine
DX: I50.32 Chronic diastolic (congestive) heart failure (principal)
CPT/HCPCS: 93306

== ENCOUNTER → 2019-11-18 | Outpatient (CLI) | payer OTHER ==
[2017-09-08 11:00] VITALS: BP 140/70
[2019-11-18 11:43] LABS: BASO % 0 % (0-3); EOS # 0.2 x10^3/uL (0.0-0.7); EOS % 3 % (0-3); HEMATOCRIT 38.1 % (36.0-47.0); HEMOGLOBIN 12.3 g/dL (12.0-15.5); LYMPH # 2.9 x10^3/uL (1.0-4.8); LYMPH % 34 % (24-48); MEAN CORPUSCULAR HEMOGLOBIN 24 pg (25-35); MEAN CORPUSCULAR HGB CONC 32 g/dL (31-37); MEAN CORPUSCULAR VOLUME 72 fL (79-100); MONO # 0.8 x10^3/uL (0.0-1.1); MONO % 9 % (0-9); NEUT # 4.8 x10^3/uL (1.8-7.7); NEUT % 55 % (31-73); PLATELET COUNT 312 x10^3/uL (140-400); RED BLOOD COUNT 5.26 x10^6/uL (3.50-5.40); RED CELL DISTRIBUTION WIDTH 18.8 % (11.5-14.5); WHITE BLOOD COUNT 8.7 x10^3/uL (4.0-11.0)
[2019-11-18 11:59] LABS: CHOLESTEROL/HDL RATIO 3.3; CREATININE 1.1 mg/dL (0.6-1.0); GFR 63.4; POTASSIUM 3.4 mmol/L (3.5-5.1)
[2019-11-19 01:09] LABS: HEMOGLOBIN A1C 7.9 % (4.8-5.6)
--- NOTE | 2019-11-23 10:56 | RAD ---
DATE: 11/18/2019 10:57 AM EXAM: MAMMO ZACK SCREENING BILATERAL HISTORY: Screening COMPARISON: 02/17/2018 Bilateral CC and MLO views of the breasts were performed. Bilateral breast tomosynthesis was performed in CC and MLO projections. This study was interpreted with the benefit of Computerized Aided Detection (CAD). FINDINGS: Breast Density: FATTY The Breast Parenchyma is primarily fatty replaced. Breast parenchyma level density A. No suspicious masses, microcalcifications or architectural distortion is present to suggest malignancy in either breast. The visualized axillae are unremarkable. IMPRESSION: No mammographic evidence of malignancy. BI-RADS CATEGORY: 1 NEGATIVE RECOMMENDED FOLLOW-UP: 12M 12 MONTH FOLLOW-UP Annual screening mammography is recommended, unless clinically indicated sooner based on symptoms or change in physical exam. PQRS compliance statement: Patient information was entered into a reminder system with a target due date for the next mammogram. Mammography is a sensitive method for finding small breast cancers, but it does not detect them all and is not a substitute for careful clinical examination. A negative mammogram does not negate a clinically suspicious finding and should not result in delay in biopsying a clinically suspicious abnormality. "Our facility is accredited by the [employer] Mammography Program."
== END | disposition home or self-care (01) ==
LOC: MAMMO 10:53
PROVIDERS: ATTEND Family Medicine
DX: Z12.31 Encounter for screening mammogram for malignant neoplasm of breast (principal)
CPT/HCPCS: 36415; 77063; 77067; 80048; 80061; 83036; 85025

== ENCOUNTER → 2019-12-17 | Outpatient (CLI) | payer OTHER ==
[2017-09-08 11:00] VITALS: BP 140/70
--- NOTE | 2019-12-17 17:25 | RAD ---
3 view study of both hands Clinical indications: Polyarthralgia. Right hand: No acute fracture or dislocation or lytic process or periosteal reaction is evident. No erosive arthropathy is evident. There is mild primary degenerative osteoarthritis of the interphalangeal joints and the first carpal metacarpal joint. No soft tissue tissue calcification of the triangular fibrocartilage complex is seen. Left hand: No acute fracture or dislocation or lytic process or periosteal reaction is evident. There is mild primary degenerative osteoarthritis of the interphalangeal joints. There is minimal spurring of the lateral aspect of the first carpal metacarpal joint. No erosive arthropathy is evident. No soft tissue calcification of the triangular fibrocartilage complex is seen. IMPRESSION: Mild primary degenerative osteoarthritis. No erosive arthropathy is evident. Electronically signed by: Gen Dya MD (12/17/2019 5:23 PM) [id number]
[2019-12-17 22:08] LABS: RHEUMATOID FACTOR 11.1 IU/mL (0.0-13.9)
[2019-12-20 16:10] LABS: ANA INTERP Negative (.)
[2019-12-20 23:07] LABS: CYCLIC CITRULLIN PEP AB 7 units (0-19)
== END | disposition home or self-care (01) ==
LOC: LAB 12:01
PROVIDERS: ATTEND Internal Medicine Rheumatology
DX: M19.042 Primary osteoarthritis, left hand (principal); M19.041 Primary osteoarthritis, right hand
CPT/HCPCS: 36415; 73130; 86038; 86140; 86200; 86431

== ENCOUNTER → 2020-09-25 | Outpatient (CLI) | payer OTHER ==
[2017-09-08 11:00] VITALS: BP 140/70
[~2020-09-25] MED LIST changes: +AMLO-187 PO; -AMLO10TA8 PO; -POLY17PO28 PO; +POLY17PO52 PO
[2020-09-25 11:34] LABS: BASO # 0.1 x10^3/uL (0.0-0.2); BASO % 1 % (0-3); EOS # 0.5 x10^3/uL (0.0-0.7); EOS % 6 % (0-3); HEMATOCRIT 39.8 % (36.0-47.0); HEMOGLOBIN 12.7 g/dL (12.0-15.5); LYMPH # 2.2 x10^3/uL (1.0-4.8); LYMPH % 28 % (24-48); MEAN CORPUSCULAR HEMOGLOBIN 24 pg (25-35); MEAN CORPUSCULAR HGB CONC 32 g/dL (31-37); MEAN CORPUSCULAR VOLUME 75 fL (79-100); MONO # 0.9 x10^3/uL (0.0-1.1); MONO % 11 % (0-9); NEUT # 4.5 x10^3/uL (1.8-7.7); NEUT % 55 % (31-73); PLATELET COUNT 255 x10^3/uL (140-400); RED BLOOD COUNT 5.29 x10^6/uL (3.50-5.40); RED CELL DISTRIBUTION WIDTH 17.7 % (11.5-14.5); WHITE BLOOD COUNT 8.1 x10^3/uL (4.0-11.0)
[2020-09-25 12:04] LABS: ALBUMIN 3.5 g/dL (3.4-5.0); ALBUMIN/GLOBULIN RATIO 0.8 (1.0-1.7); CALCIUM 9.4 mg/dL (8.5-10.1); GFR 70.5; POTASSIUM 4.1 mmol/L (3.5-5.1); TOTAL BILIRUBIN 0.6 mg/dL (0.2-1.0)
[2020-09-25 23:07] LABS: HEMOGLOBIN A1C 6.3 % (4.8-5.6)
== END ==
LOC: LAB 11:13
PROVIDERS: ATTEND Family Medicine
DX: E11.9 Type 2 diabetes mellitus without complications (principal); I10 Essential (primary) hypertension; E78.5 Hyperlipidemia, unspecified; R06.09 Other forms of dyspnea
CPT/HCPCS: 36415; 80053; 80061; 83036; 84443; 85025

== ENCOUNTER → 2021-08-09 | Outpatient (CLI) | payer OTHER ==
[2017-09-08 11:00] VITALS: BP 140/70
[~2021-08-09] MED LIST changes: -LISI1TAB20 PO; +LISI1TAB39 PO
--- NOTE | 2021-08-09 15:05 | KCIC ---
Exam Date: 08/09/2021 11:00 AM MRI RIGHT LOWER EXTREMITY JOINT WITHOUT Indication: Reason: SOFT TISSUE MASS RIGHT HIP/Ordered as a joint. / Spl. Instructions: Unable to bean ge the pt's entire soft tissue area due to body habitus. / History: Pt feels a lump in the very super ficial region of the S.T. area on rt side.. TECHNIQUE: Multiplanar MR images of the hip were performed without intravenous contrast. FINDINGS: Evaluation is limited by motion, body habitus, and [id number] limitations of the MRI scanner. Mild degenerative changes seen in the right hip. Bone marrow signal is within normal limits. No acute fracture visualized. No avascular necrosis or joint effusion. Evaluation of the labrum is limited i n the absence of intra-articular contrast, though no definite labral tear is identified. There is no evidence for femoroacetabular impingement. Iliopsoas, hamstring, and gluteal tendons are intact. Fatty infiltration of multiple pelvic muscles is identified, including the gluteus nancie. The bony pelvis is intact. SI joints are grossly unremarkable. There is nonspecific soft tissue edema in the subcutaneous fat overlying the right posterolateral asp ect of the right gluteus nancie, nonspecific. This is partially excluded from the [id number] due to limitations of the MRI scanner. No loculated collection or circumscribed mass lesion is identifi ed in the visualized area. Similar soft tissue edema is seen in the subcutaneous fat overlying the s acrum. IMPRESSION: Soft tissue edema is noted in the subcutaneous fat overlying the right gluteus nacnie muscle, as wel l as the sacrum. This is nonspecific and could represent soft tissue contusion from trauma or soft t issue edema from pressure from lying supine. These areas are partially excluded from the field-of-vi ew due to limitations of the MRI scanner. No organized collection or abnormal circumscribed soft tis dionisio mass lesion is identified. Mild degenerative changes noted in the right hip. No acute fracture or avascular necrosis. Fatty infiltration noted in the pelvic muscles, including the recent access. Electronically signed by: Guillermo Rodriguez MD (08/09/2021 3:02 PM) [id number]
== END ==
LOC: KCIC MRI 10:50
PROVIDERS: ATTEND Family Medicine
DX: M16.11 Unilateral primary osteoarthritis, right hip (principal); M79.89 Other specified soft tissue disorders
CPT/HCPCS: 73721